=== PATIENT | female | born 1955 | race Caucasian/White ===

== ENCOUNTER 2020-10-14 12:32 | Outpatient (REF) | payer MEDICARE, OTHER, SELFPAY ==
[2020-10-14 21:15] LABS: ALT 31 U/L (14-59); AST 21 U/L (15-37); Albumin 4.2 g/dL (3.4-5.0); Alkaline Phosphatase 75 U/L (46-116); BUN 13 mg/dL (7-18); Bilirubin, Total 0.7 mg/dL (0.2-1.0); CREATININE 0.77 mg/dL (0.55-1.02); Chloride 101 mmol/L (98-107); Glucose 98 mg/dL (74-106); Potassium 4.2 mmol/L (3.5-5.1); Sodium 136 mmol/L (136-145); Total Protein 7.3 g/dL (6.4-8.2)
[2020-10-14 21:34] LABS: Calculated LDL 82 mg/dL (<100); Cholesterol 157 mg/dL (<200); HDL Cholesterol 52 mg/dL (40-60); Triglyceride 118 mg/dL (<150)
== END 2020-10-14 12:52 ==
LOC: NCHCN 12:32
PROVIDERS: Visit Provider Nurse Practitioner Family
DX: I10 Essential (primary) hypertension (principal); E78.00 Pure hypercholesterolemia, unspecified; Z51.81 Encounter for therapeutic drug level monitoring
CPT/HCPCS: 80053; 80061

== ENCOUNTER 2021-10-23 10:33 | Outpatient (REF) | payer MEDICARE, OTHER, SELFPAY ==
[2021-10-23 15:09] LABS: ALT 37 U/L (14-59); AST 20 U/L (15-37); Albumin 4.1 g/dL (3.4-5.0); Alkaline Phosphatase 98 U/L (46-116); Anion Gap 8.4 mmol/L (3-11); BUN 17 mg/dL (7-18); Bilirubin, Total 0.7 mg/dL (0.2-1.0); CO2 28.6 mmol/L (21.0-32.0); CREATININE 0.7 mg/dL (0.55-1.02); Calcium 9.7 mg/dL (8.5-10.1); Calculated LDL 100 mg/dL (<100); Chloride 99 mmol/L (98-107); Cholesterol 176 mg/dL (<200); Glucose 115 mg/dL (74-106); HDL Cholesterol 58 mg/dL (40-60); Potassium 3.9 mmol/L (3.5-5.1); Sodium 136 mmol/L (136-145); TSH 1.02 uIU/mL (0.36-3.74); Total Protein 7.4 g/dL (6.4-8.2); Triglyceride 92 mg/dL (<150)
[2021-10-24 01:06] LABS: Vitamin D 25 Total 51.7 ng/mL (30-100)
== END 2021-10-23 10:34 | disposition home or self-care (01) ==
LOC: NCHCN 10:33
PROVIDERS: Visit Provider Nurse Practitioner Family
DX: I10 Essential (primary) hypertension (principal); E78.00 Pure hypercholesterolemia, unspecified; E03.1 Congenital hypothyroidism without goiter; R53.83 Other fatigue
CPT/HCPCS: 80053; 80061; 82306; 84443

== ENCOUNTER 2021-11-13 00:31 | Outpatient (CLI) | payer MEDICARE, OTHER, SELFPAY ==
--- NOTE | 2021-11-13 13:33 | DI.MAMMO_ITS ---
Exam(s) MAMMO SCREENING EXAM: MAMMO SCREENING CLINICAL HISTORY: SCREENING FOR BREAST CANCER Z12.31. TECHNIQUE: Bilateral full field digital CC and MLO mammographic images were obtained with 3D tomosyn thesis and utilizing computer aided detection (CAD). COMPARISON: Prior outside mammograms dating back to 2009, the most recent being November 2019. FINDINGS: There has been no significant change in the appearance and distribution of the fibroglandular tissue. There are no new spiculated masses nor malignant appearing microcalcification groups. Benign microcalcifications in the left breast as well as a benign macro calcification in the posterio r aspect of the right breast are unchanged. There is no significant architectural distortion nor skin thickening-retraction. IMPRESSION: No radiographic evidence of malignancy. BI-RADS Category 1 - Negative Breast Density - Category B - Scattered areas of fibroglandular density Breast density Category C or D implies that the patient has dense breast tissue. Dense breast tissue can make it harder to find cancer on a mammogram. Dense breast tissue is also associated with an incr eased risk of breast cancer. This information about the result of the mammogram report was provided to the patient to raise their awareness. Use this report when you speak with the patient about their risks for breast cancer, which includes their family history. At that time, you may recommend additional screening tests (Ultrasoun d or MRI) as these tests may add significant information. A negative radiographic report should not delay biopsy if a dominant or clinically suspicious mass is present. Up to ten percent of cancers are not identified on mammography. A negative report may reinforce clinical impression. Adenosis and dense breasts may obscure an underlying neoplasm. False positive reports average 6 to 10%. Patient will receive a letter notifying them of these results.
== END 2021-11-13 00:51 ==
PROVIDERS: Visit Provider Nurse Practitioner Family
DX: Z12.31 Encounter for screening mammogram for malignant neoplasm of breast (principal)
CPT/HCPCS: 77063; 77067

== ENCOUNTER 2022-11-02 11:36 | Outpatient (REF) | payer MEDICARE, OTHER, SELFPAY ==
[2022-11-02 16:33] LABS: ALT 36 U/L (14-59); AST 22 U/L (15-37); Albumin 4.1 g/dL (3.4-5.0); Alkaline Phosphatase 108 U/L (46-116); Anion Gap 6.7 mmol/L (3-11); BUN 13 mg/dL (7-18); Bilirubin, Total 0.6 mg/dL (0.2-1.0); CO2 30.3 mmol/L (21.0-32.0); CREATININE 0.7 mg/dL (0.55-1.02); Calcium 9.7 mg/dL (8.5-10.1); Chloride 100 mmol/L (98-107); Estimated GFR 93.56 (mL/min/1.73m2); Glucose 107 mg/dL (74-106); Potassium 4.5 mmol/L (3.5-5.1); Sodium 137 mmol/L (136-145); TSH 1.38 uIU/mL (0.36-3.74); Total Protein 7.4 g/dL (6.4-8.2)
== END 2022-11-02 11:37 | disposition home or self-care (01) ==
LOC: NCHCN 11:36
PROVIDERS: PCP Nurse Practitioner Family; Visit Provider Nurse Practitioner Family
DX: E03.1 Congenital hypothyroidism without goiter (principal); Z51.81 Encounter for therapeutic drug level monitoring
CPT/HCPCS: 80053; 84443

== ENCOUNTER 2022-11-21 15:43 | Outpatient (REF) | payer MEDICARE, OTHER, SELFPAY | END 2022-11-21 15:44 | disposition home or self-care (01) | LOC: NCHCN 15:43 | PROVIDERS: PCP Nurse Practitioner Family; Visit Provider Nurse Practitioner Family | DX: R39.89 Other symptoms and signs involving the genitourinary system (principal) | CPT/HCPCS: 87077; 87086; 87186 ==

== ENCOUNTER 2022-12-21 00:13 | Outpatient (CLI) | payer MEDICARE, OTHER, SELFPAY ==
--- NOTE | 2022-12-21 | DI.DEXA_ITS ---
Exam(s) XR DEXA BONE DENSITY W/WO OSIRIS EXAM: XR DEXA BONE DENSITY W/WO OSIRIS CLINICAL HISTORY: PREVENTIVE HEALTH CARE,Z00.00,SCREENING FOR OSTEOPOROSIS IN POSTMENOPAUSAL TECHNIQUE: COMPARISON: No exams were available for comparison FINDINGS: Lateral Spine Image: Unremarkable. No compression deformities identified. Left hip: Total T-Score: -0.8 Total Z-Score: 0.6 T- and Z-scores: Within normal limits. Lumbar Spine: Total T-Score: 1.9 Total Z-Score: 3.9 T- and Z-scores: Within normal limits. IMPRESSION: No evidence of osteoporosis.
== END 2022-12-21 00:33 ==
LOC: DI 00:14
PROVIDERS: PCP Nurse Practitioner Family; Visit Provider Nurse Practitioner Family
DX: Z13.820 Encounter for screening for osteoporosis (principal); Z78.0 Asymptomatic menopausal state
CPT/HCPCS: 77080

== ENCOUNTER 2023-06-10 11:16 | Outpatient (REF) | payer MEDICARE, OTHER, SELFPAY ==
[2023-06-10 17:22] LABS: Vitamin B12 316 pg/mL (193-986)
== END 2023-06-10 11:17 | disposition home or self-care (01) ==
LOC: NCHCN 11:16
PROVIDERS: PCP Nurse Practitioner Family; Visit Provider Nurse Practitioner Family
DX: M79.673 Pain in unspecified foot (principal)
CPT/HCPCS: 82607; 83735

== ENCOUNTER → 2023-07-11 08:45 | Outpatient (BNVA) | payer MEDICARE, OTHER, SELFPAY | PROVIDERS: PCP Nurse Practitioner Family; Referring Provider Nurse Practitioner Family; Visit Provider Physical Therapy Assistant | DX: Z12.11 Encounter for screening for malignant neoplasm of colon (principal); Z86.010 Personal history of colon polyps ==

== ENCOUNTER 2023-07-30 12:49 | Outpatient (REF) | payer MEDICARE, OTHER, SELFPAY ==
[2023-07-30 17:16] LABS: Anion Gap 5.2 mmol/L (3-11); BUN 15 mg/dL (7-18); CO2 31.8 mmol/L (21.0-32.0); CREATININE 0.8 mg/dL (0.55-1.02); Calcium 9.7 mg/dL (8.5-10.1); Chloride 90 mmol/L (98-107); Estimated GFR 79.71 (mL/min/1.73m2); Glucose 118 mg/dL (74-106); Potassium 3.8 mmol/L (3.5-5.1); Sodium 127 mmol/L (136-145)
== END 2023-07-30 12:50 | disposition home or self-care (01) ==
LOC: NCHCN 12:49
PROVIDERS: PCP Nurse Practitioner Family; Visit Provider Nurse Practitioner Family
DX: I10 Essential (primary) hypertension (principal); R20.2 Paresthesia of skin
CPT/HCPCS: 80048

== ENCOUNTER 2023-07-31 10:25 | Day surgery (SDC) | payer MEDICARE, OTHER, SELFPAY ==
--- NOTE | 2023-07-31 06:28 | W.ANESPRE ---
General Info Date of Service Date Performed: 07/31/23 Height: 5 ft 2 in Weight: 68.039 kg Body Mass Index (BMI): 27.4 Surgical Procedure: Operation Date: 07/31/23 12:20 Proposed Procedure Side Surgeon p Saul Fernandez MD Meds Allergies and Home Medications Allergies Allergy/AdvReac Type Severity Reaction Status Date / Time penicillin V Allergy Severe Verified 07/31/23 10:58 Home Medication Medication Instructions Recorded aspirin 81 mg tablet,delayed 81 mg PO DAILY 12/24/22 release (Adult Aspirin Regimen) atorvastatin 10 mg tablet 10 mg PO QHS 12/24/22 coenzyme Q10 10 mg capsule (Co 10 mg PO DAILY 12/24/22 Q-10) escitalopram oxalate 5 mg tablet 5 mg PO DAILY 12/24/22 fexofenadine 180 mg tablet 180 mg PO DAILY PRN 12/24/22 (Brina Allergy) levothyroxine 100 mcg capsule 100 mcg PO DAILY 12/24/22 losartan 100 mg tablet 100 mg PO DAILY 12/24/22 bisacodyl 5 mg tablet,delayed 5 mg PO ONCE colonscopy bowel prep 07/11/23 release (Dulcolax (bisacodyl)) #4 tabs fluticasone propionate 50 1 spray intranasal DAILY PRN 07/11/23 mcg/actuation nasal spray,suspension (Allergy Relief (fluticasone)) polyethylene glycol 3350 17 238 g PO ONCE colonoscopy prep 07/11/23 gram/dose oral powder #238 grams chlorthalidone 25 mg tablet 25 mg PO DAILY 07/30/23 Current Visit Medications: Current Medications Generic Name Dose Route Start Last Admin Trade Name Chrisq PRN Reason Stop Dose Admin Ringer's Solution 1,000 mls @ 80 mls/hr 07/31/23 06:00 IV 08/29/23 23:59 INFUSION TAIWO IV Miscellaneous Supplies 1 each 07/31/23 06:00 Iv Access IV 08/29/23 23:59 DIRECTED TAIWO Sodium Chloride 0 ml 07/31/23 06:00 Normal Saline Flush 10 Ml Syr IV 08/29/23 23:59 PRN PRN Sodium Chloride 0 ml 07/31/23 06:00 Normal Saline 10 Ml Vial IJ 08/29/23 23:59 DIRECTED PRN Sterile Water 0 ml 07/31/23 06:00 Water,Injection,Sterile 10 Ml Vial IJ 08/29/23 23:59 DIRECTED PRN PFSH Active Problems Active Problems: Problem Status Onset Code Tubulovillous adenoma of colon D12.6 GERD (gastroesophageal reflux disease) K21.9 Pure hypercholesterolemia E78.00 Essential hypertension I10 Abnormal glucose R73.09 Diverticulosis of both small and large intestine without perforation or abscess without bleeding K57.50 Depression F32.A PVD (peripheral vascular disease) I73.9 Carotid artery stenosis I65.29 Cardiomegaly I51.7 Rosacea L71.9 Raynaud's phenomenon I73.00 Hypothyroid E03.9 Screening for colon cancer Z12.11 Medical History Medical History Cervical disc displacement Family history of alcoholism Shingles Spinal stenosis in cervical region Surgical History Surgical History H/O shoulder surgery H/O: hysterectomy History of colon resection 2011 History of incisional hernia repair Tobacco Smoking/Tobacco Use Status: Former Tobacco Use Alcohol Alcohol Intake: current Alcohol intake frequency: 0-2 drinks per day Alcohol type: beer Substance Use Substance use: Never Substance use type: does not use Vital Signs and Lab Results Vital Signs Most Recent Vital Signs in EMR: Temp Pulse Resp BP Pulse Ox 36.5 C 73 17 139/47 L 100 07/31/23 10:47 07/31/23 10:47 07/31/23 10:47 07/31/23 10:47 07/31/23 10:47 Lab Results Blood Type / Crossmatch: No Data to Display Complete Blood Count: No Data to Display Complete Metabolic Panel: Sodium 127 mmol/L (136-145) L 07/30/23 07:40 Potassium 3.8 mmol/L (3.5-5.1) 07/30/23 07:40 Chloride 90 mmol/L (98-107) L 07/30/23 07:40 Carbon Dioxide 31.8 mmol/L (21.0-32.0) 07/30/23 07:40 BUN 15 mg/dL (7-18) 07/30/23 07:40 Creatinine 0.8 mg/dL (0.55-1.02) 07/30/23 07:40 Est GFR (CKD-EPI 2020) 79.71 (mL/min/1.73m2) 07/30/23 07:40 Calcium 9.7 mg/dL (8.5-10.1) 07/30/23 07:40 Glucose 118 mg/dL (74-106) H 07/30/23 07:40 Liver Function Panel: No Data to Display Coagulation Panel: No Data to Display Cardiac Panel: No Data to Display Arterial Blood Gas: No Data to Display Venous Blood Gas: No Data to Display Pancreas Panel: No Data to Display Thyroid Panel: No Data to Display Infectious Disease: No Data to Display Blood Cultures: No Data to Display Toxicology Panel: No Data to Display Anesthesia Assessment and Plan Anesthesia History Personal History: No History of Anesthesia Complications Family History: No Family History of Anesthesia Complications Exercise Tolerance Exercise Tolerance: Metabolic Equivalents>4 Cardiac & Pulmonary Exam Cardiac Exam: Normal S1/S2 Heart Sounds Pulmonary Exam: Clear Bilateral Breath Sounds Implantable Cardiac Device Does patient have a Pacemaker or an ICD?: No Airway Exam Known Difficult Airway: No Mallampati Class: 3 Mouth Opening: Normal (> 3cm) Thyromental Distance: Greater than 3 cm Neck Range of Motion: Full ROM Neck Circumference: Normal Teeth Condition: Normal Dentition ASA Classification ASA Score: ASA 2 Emergency Case?: No NPO Status NPO Status: NPO Clears >2 hours, Solids >8 hours Anesthesia Plan Resuscitation Status: Full Code Anesthesia Technique: General Anesthesia Airway Planned: Natural Airway Monitors Used: Standard Monitors Preoperative Comments:: 67 yo female for colo. Sig PMHx: HTN, cardiomegaly (unsure), PVD/carotid stenosis (denies, tested in [place]), hypothyroid. cervical stenosis. former smoker, occ EtOH.
[2023-07-31 10:47] VITALS: BP 139/47; PULSE 73; RESP 17; TEMP 36.5; O2SAT 100
[2023-07-31 11:08] VITALS: BMI 27.4
[2023-07-31] MEDS: Lactated Ringers 1,000 ML 80 ML IV (11:09)
--- NOTE | 2023-07-31 11:46 | COLE_ITS ---
Date of service: 07/31/23 Time of Service: 11:46 Colonoscopy Report Procedure Description: Procedures performed: 1. Colonoscopy Preoperative diagnosis: Surveillance colonoscopy Postoperative diagnosis: Normal Colon, grade 1 internal hemorrhoids. Surgeon: Pro Fernandez Anesthesia: Mitul Indication for procedure: 67-year-old thrombosed removed, prior colonoscopy had a sessile serrated polyp, she has no personal history or family history of colorectal cancer. History of sigmoid colectomy for diverticular disease. Findings: Normal terminal ileum.? Scattered diverticuli are present in the descending colon all the way to the proximal rectum. No new polyps. Grade 1 i nternal hemorrhoids noted. Surveillance/follow-up recommendations: Current guidelines recommend 5-10 years as a surveillance interval for single, small sessile serrated adenoma history. Complications: None Blood loss: Minimal Prep: Excellent Specimens:? None Procedure in detail: Written consent was obtained from the patient who was in agreement with the risks, benefits and indications of the procedure.? We went to the endoscopy suite and laid the patient in left lateral decubitus position.? Anesthesia was administered which was tolerated well.? A timeout was performed and when we are all in agreement we began the procedure. Digital rectal exam and visual examination was performed and within normal limits.? A well?lubricated colonoscope was advanced without difficulty all the way to the cecum identified by the ileocecal valve, and triangular folds and appendiceal orifice.? Terminal ileum was normal.? It was then slowly withdrawn.?? Retroflexion was performed in the rectum.? The f indings/interventions are noted above. The scope was then removed and the patient tolerated the procedure well and was then taken back to the PACU in hemodynamically stable condition.
[2023-07-31 12:06] VITALS: BP 104/67; PULSE 60; RESP 18; TEMP 36.3; O2SAT 98
--- NOTE | 2023-07-31 12:15 | W.ANESPOSTOP ---
Postoperative Evaluation Date, Time and Location Date Performed: 07/31/23 Time Performed: 12:15 Patient Location: Day Surgery Unit Vital Signs Most Recent Imported Vital Signs: Most Recent Vital Signs Temp Pulse Resp BP Pulse Ox 36.3 C L 60 18 104/67 98 07/31/23 12:06 07/31/23 12:06 07/31/23 12:07/31/23 12:07/31/23 12:06 Pain Score Most Recent Pain Score: Most Recent Pain Score Pain Level 0 07/31/23 10:47 Assessment Mental Status: Awake (Alert & Oriented to Patient Baseline) Airway and Respiratory Function: Patent airway with normal (patient baseline) respiratory exam Cardiovascular Function: Hemodynamically Stable Hydration Status: Adequately Hydrated Nausea & Vomiting: No Nausea or Vomiting Pain: Pt. Denies Any Pain Peripheral Nerve Block: Patient did not receive a nerve block
--- NOTE | 2023-07-31 12:32 | W.PM.DSUDISC ---
Date of service: 07/31/23 Time of Service: 12:32 Discharge Plan Disposition Patient Disposition: Home Condition: Good Discharge Details Attending Provider: Maury Fernandez Primary Care Provider: Dayanna Michaels Home Meds and New Rx's Prescriptions: No Action polyethylene glycol 3350 17 gram/dose powder 238 g PO ONCE Qty: 238 0RF Rx Instructions: take per colonoscopy instructions bisacodyl [Dulcolax (bisacodyl)] 5 mg tablet,delayed release (DR/EC) 5 mg PO ONCE Qty: 4 0RF Rx Instructions: take per colonoscopy instructions escitalopram oxalate 5 mg tablet 5 mg PO DAILY levothyroxine 100 mcg capsule 100 mcg PO DAILY atorvastatin 10 mg tablet 10 mg PO QHS losartan 100 mg tablet 100 mg PO DAILY fexofenadine [Brina Allergy] 180 mg tablet 180 mg PO DAILY PRN coenzyme Q10 [Co Q-10] 10 mg capsule 10 mg PO DAILY aspirin [Adult Aspirin Regimen] 81 mg tablet,delayed release (DR/EC) 81 mg PO DAILY fluticasone propionate [Allergy Relief (fluticasone)] 50 mcg/actuation spray,suspension 1 spray intranasal DAILY PRN Rx Instructions: administer into each nostril chlorthalidone 25 mg tablet 25 mg PO DAILY Discharge Instructions Stand Alone Forms: Anesthesia Discharge Inst., [facility] ([facility]), Colonoscopy Post Instructions Activity:: Activity as Tolerated Diet:: Normal Diet DS: Diagnosis Discharge Diagnosis (1) Screening for colon cancer: Status: Acute Asessment and Plan: No new Polyps were found. Repeat colonoscopy is recommended in 5 to 10 years. There remains some diverticular disease in your colon. This is very common and is usually not have symptoms there is nothing that needs to be done about it.
[2023-07-31 12:35] VITALS: BP 127/74; PULSE 62; RESP 18; TEMP 36.6; O2SAT 99
== END 2023-07-31 12:49 | disposition home or self-care (01) ==
PROVIDERS: PCP Nurse Practitioner Family; Visit Provider Student in an Organized Health Care Education/Training Program
PROC: 0DJD8ZZ Inspection of Lower Intestinal Tract, Via Natural or Artificial Opening Endoscopic (ICD-10-PCS; CPT 45378; principal; 2023-07-31 12:15)
DX: Z12.11 Encounter for screening for malignant neoplasm of colon (principal); K64.0 First degree hemorrhoids; Z86.010 Personal history of colon polyps; Z90.49 Acquired absence of other specified parts of digestive tract; Z98.0 Intestinal bypass and anastomosis status
CPT/HCPCS: G0105; J2001

== ENCOUNTER 2023-08-19 12:31 | Outpatient (REF) | payer MEDICARE, OTHER, SELFPAY ==
[2023-08-19 17:42] LABS: BUN 14 mg/dL (7-18); CREATININE 0.7 mg/dL (0.55-1.02); Chloride 98 mmol/L (98-107); Estimated GFR 93.56 (mL/min/1.73m2); Glucose 104 mg/dL (74-106); Potassium 4.3 mmol/L (3.5-5.1); Sodium 133 mmol/L (136-145)
== END 2023-08-19 12:32 | disposition home or self-care (01) ==
LOC: NCHCN 12:31
PROVIDERS: PCP Nurse Practitioner Family; Visit Provider Nurse Practitioner Family
DX: M77.41 Metatarsalgia, right foot (principal); I10 Essential (primary) hypertension; M77.42 Metatarsalgia, left foot
CPT/HCPCS: 80048

== ENCOUNTER → 2023-10-01 00:08 | Outpatient (CLI) | payer MEDICARE, OTHER, SELFPAY ==
--- NOTE | 2023-10-01 | DI.MAMMO_ITS ---
Exam(s) MAMMO SCREENING EXAM: MAMMO SCREENING CLINICAL HISTORY: SCREENING, Z12.31. TECHNIQUE: Bilateral full field digital CC and MLO mammographic images were obtained with 3D tomosyn thesis and utilizing computer aided detection (CAD). COMPARISON: Prior mammograms were reviewed. FINDINGS: There has been no significant change in the appearance and distribution of the fibroglandular tissue. There are no new spiculated masses nor malignant appearing microcalcification groups. There is no significant architectural distortion nor skin thickening-retraction. IMPRESSION: No radiographic evidence of malignancy. BI-RADS Category 1 - Negative Breast Density - Category B - Scattered areas of fibroglandular density Breast density Category C or D implies that the patient has dense breast tissue. Dense breast tissue can make it harder to find cancer on a mammogram. Dense breast tissue is also associated with an incr eased risk of breast cancer. This information about the result of the mammogram report was provided to the patient to raise their awareness. Use this report when you speak with the patient about their risks for breast cancer, which includes their family history. At that time, you may recommend additional screening tests (Ultrasoun d or MRI) as these tests may add significant information. A negative radiographic report should not delay biopsy if a dominant or clinically suspicious mass is present. Up to ten percent of cancers are not identified on mammography. A negative report may reinforce clinical impression. Adenosis and dense breasts may obscure an underlying neoplasm. False positive reports average 6 to 10%. Patient will receive a letter notifying them of these results.
== END ==
PROVIDERS: PCP Nurse Practitioner Family; Visit Provider Nurse Practitioner Family
DX: Z12.31 Encounter for screening mammogram for malignant neoplasm of breast (principal); R92.323 Mammographic fibroglandular density, bilateral breasts
CPT/HCPCS: 77063; 77067

== ENCOUNTER 2023-11-11 19:22 | Outpatient (REF) | payer MEDICARE, OTHER, SELFPAY ==
[2023-11-11 16:35] LABS: Hemoglobin A1C 5.6 % (<5.7)
[2023-11-11 16:54] LABS: ALT 31 U/L (14-59); AST 21 U/L (15-37); Albumin 3.9 g/dL (3.4-5.0); Alkaline Phosphatase 99 U/L (46-116); Anion Gap 9.1 mmol/L (3-11); BUN 13 mg/dL (7-18); Bilirubin, Total 0.6 mg/dL (0.2-1.0); CO2 25.9 mmol/L (21.0-32.0); CREATININE 0.8 mg/dL (0.55-1.02); Calcium 9.5 mg/dL (8.5-10.1); Calculated LDL 93 mg/dL (<100); Chloride 102 mmol/L (98-107); Cholesterol 167 mg/dL (<200); Estimated GFR 79.22 (mL/min/1.73m2); Glucose 115 mg/dL (74-106); HDL Cholesterol 61 mg/dL (40-60); Potassium 4.2 mmol/L (3.5-5.1); Sodium 137 mmol/L (136-145); TSH 1.27 uIU/mL (0.36-3.74); Total Protein 7.3 g/dL (6.4-8.2); Triglyceride 68 mg/dL (<150)
== END 2023-11-11 19:23 | disposition home or self-care (01) ==
LOC: NCHCN 19:22
PROVIDERS: PCP Nurse Practitioner Family; Visit Provider Nurse Practitioner Family
DX: E78.5 Hyperlipidemia, unspecified (principal); Z00.00 Encounter for general adult medical examination without abnormal findings; E03.9 Hypothyroidism, unspecified
CPT/HCPCS: 80053; 80061; 83036; 84443

== ENCOUNTER → 2023-11-22 09:52 | Outpatient (CLI) | payer MEDICARE, OTHER, SELFPAY ==
--- NOTE | 2023-11-22 10:40 | DI.US_ITS ---
APPROVED REPORT EXAM: Comprehensive 2D, Doppler, and color-flow Echocardiogram Patient Location: Out-Patient [place] Diver: Betito Neri RDCS (AE) Indications: murmur Other Information Study Quality: Good Conclusion 1. Moderately dilated left atrium, other chambers normal. 2. Normal LV systolic function,EF 65-70%.No wall motion abnormality. Grade 1 diastolic dysfunction 3. Anatomically normal valves. Mild to moderate MR,mild AI,mild TR. 4. No pericardial effusion. Wall motion Left Ventricle The left ventricle is normal size. The left ventricular systolic function is normal. The left ventric ular ejection fraction is within the normal range. There is normal left ventricular wall thickness. T here is normal LV segmental wall motion. There is no ventricular septal defect visualized. LVEF is 65 %. Right Ventricle The right ventricle is normal size. The right ventricular systolic function is normal. The RVSP is 31 .8 mmHg. Atria The left atrium size is normal. The left atrium is moderately dilated. The right atrium size is keely l. The interatrial septum is intact with no evidence for an atrial septal defect. Aortic Valve The Aortic valve is sclerotic. Aortic valve is trileaflet. No hemodynamically significant valvular ao rtic stenosis. There is mild aortic regurgitation. Mitral Valve Mild mitral annular calcification. No evidence of mitral valve stenosis. Mild to moderate mitral regu rgitation. Tricuspid Valve The tricuspid valve is normal in structure. There is no tricuspid valve stenosis. There is trace to mild tricuspid regurgitation. There is no pulmonary hypertension. Pulmonic Valve The pulmonary valve is normal in structure. There is no pulmonic valvular stenosis. Trivial pulmonic regurgitation. Great Vessels The aortic root is normal in size. The ascending aorta is normal in size. Aortic arch is not well vis ualized. IVC is normal in size and collapses >50% with inspiration. Pericardium There is no pericardial effusion. 2D Dimensions IVSD d PLAX 0.92 cm F: 0.6-1.0 Ao Root d 2.76 cm F: 2.7 - 3.3 LVPW d PLAX 0.92 cm F: 0.6 - 1.0 Ao Asc Diam d 2.85 cm F: 2.3 - 3.1 LVID d PLAX 4.22 cm F: 3.8 - 5.2 LVDs 2.81 cm F: 2.2 - 3.5 LV EF Teichholz 62.5 % FS 33.41 % LV EDV (Teich) 79.3 mL LV ESV (Teich) 29.7 mL Stroke Vol Index (Teich) 29.67 M-Mode TAPSE 2.56 cm (M/F) >1.7 Auto EF LV EDV A4C 74.7 mL LV EDV A2C 80.1 mL LV EDV BP 77.4 mL LV ESV A4C 25.4 mL LV ESV A2C 28.1 mL LV ESV BP 25.8 mL LVEF(%) A4C 65.9 % LVEF(%) A2C 64.9 % LVEF(%) BP 66.7 % LV SV A4C 49.3 ml LV SV A2C 52.0 ml LV SV BP 51.6 ml LV CO A4C 3.4 L/min LV CO A2C 3.4 L/min LV CO BP 3.4 L/min HR A4C 69.77 BPM HR A2C 66.06 BPM LV EDV Index (BP) LA Volume LA Length A4C 4.4 cm LA Length A2C 4.7 cm LA Area A4C s 11.26 cm2 LA Area A2C s 16.00 cm2 LA Vol A4C A-L 24.29 mL LA Vol A2C A-L 45.86 mL LA Vol Biplane A-L 34.5 mL LA Vol/BSA A4C A-L LA Vol/BSA A2C A-L LA Vol/BSA BP A-L 20.7 mL/m2 LA Vol A4C MOD 22.4 mL LA Vol A2C MOD 42.4 mL LA Vol BP MOD 31.8 mL RA Volume RA Area A4C 5.3 cm2 RA ESV A4C (A-L) 6.2mL RA Vol/BSA A4C A-L RA Length A4C 3.8 cm RA ESV A4C (MOD) 6.2mL LV Diastology MV E' medial 0.075 (>0.07 m/s) MV E Vmax 0.93 (0.4-1.3 m/s) MV E/E' MED 12.47 (<14) MV A Vmax 1.10 (0.4-1.3 m/s) MV E' lateral 0.060 (>0.1 m/s) E/A Ratio 0.8 MV E/E' LAT 15.63 (<14) MV E' Average 0.067 m/s MV E/E'(average) 13.87 Aortic Valve AoV Vmax 2.01 m/s LVOT Vmax 1.49 m/s AoV Peak Grad 35.4 mmHg LVOT Peak Grad 8.9 mmHg AoV Area (Vmax) 2.00 cm2 LVOT VTI 0.393 m AoV VTI 0.491 m LVOT Mean Grad 5.4 mmHg AoV Mean Miguel. 1.43 m/s LVOT SV 105.75 mL AoV Mean Grad 9.3 mmHg LVOT Diam s 1.85 cm AoV Area (VTI) 2.15 cm2 AV Regurg Peak Gr. 53.45 mmHg Velocity Ratio 0.74 AR Decel [place] 3.0m/sec2 AR DT 1205 msec AR PHT 349 msec AR Vmax 3.66 m/s Mitral Valve MV DT 250 (160-240 msec) MV Vmax TIPS 1.38 m/s MV Mean Grad 3.7 (<2mmHg) MV VTI 0.515 m Pulmonary Valve PV Vmax 1.37 (0.5-1.5 m/s) RVOT Vmax 0.78 m/s PV Peak Grad 7.5 mmHg RVOT Peak Gr. 2.4 mmHg PV Mean Miguel 0.86 m/s RVOT VTI 0.179 m PV Mean Grad 3.6 mmHg RVOT Mean Gr. 1.4 mmHg Tricuspid Valve RA Pressure 3.00 mmHg TR Vmax 2.68 m/s TR Peak Grad 28.8 mmHg RVSP (TR) 31.8 mmHg
== END ==
PROVIDERS: PCP Nurse Practitioner Family; Visit Provider Nurse Practitioner Family
DX: R01.1 Cardiac murmur, unspecified (principal)
CPT/HCPCS: 93306

== ENCOUNTER 2023-12-12 09:22 | Outpatient (REF) | payer MEDICARE, SELFPAY ==
[2023-12-12 15:21] LABS: Abs Immature Grans 0.02 10^3/uL (0.0-0.06); Absolute Basophil Count 0.08 10^3/uL (0.0-0.2); Absolute Eosinophil Count 0.35 10^3/uL (0.0-0.7); Absolute Lymphocyte Count 1.92 10^3/uL (1.2-3.4); Absolute Monocyte Count 0.73 10^3/uL (0.1-0.8); Basophils % 1.2; Eosinophils % 5.2; HCT 38.4 % (36.0-46.0); HGB 12.7 g/dL (11.2-15.7); Immature Grans % 0.3; Lymphocytes % 28.7; MCH 31.1 pg (27.0-33.0); MCHC 33.1 % (32.0-36.0); MCV 94 fL (80-95); MPV 11.1 fL (8.0-11.0); Monocytes % 10.9; Neutrophils % 53.7; Platelet Count 300 10^3/uL (130-400); RBC 4.09 10^6/uL (3.93-5.22); RDW 12.3 % (11.7-14.6); RDW-SD 42.5 fL
[2023-12-12 15:34] LABS: Anion Gap 9.5 mmol/L (3-11); BUN 19 mg/dL (7-18); CO2 27.5 mmol/L (21.0-32.0); CREATININE 0.9 mg/dL (0.55-1.02); Calcium 9.9 mg/dL (8.5-10.1); Chloride 100 mmol/L (98-107); Estimated GFR 68.77 (mL/min/1.73m2); Glucose 121 mg/dL (74-106); Magnesium 2.2 mg/dL (1.8-2.4); Potassium 4.2 mmol/L (3.5-5.1); Sodium 137 mmol/L (136-145); Uric Acid 4.8 mg/dL (2.6-6.0)
== END 2023-12-12 09:23 | disposition home or self-care (01) ==
LOC: NCHCN 09:22
PROVIDERS: PCP Nurse Practitioner Family; Visit Provider Nurse Practitioner Family
DX: I73.00 Raynaud's syndrome without gangrene (principal); R79.89 Other specified abnormal findings of blood chemistry
CPT/HCPCS: 80048; 83735; 84550; 85025

== ENCOUNTER 2024-10-15 10:55 | Outpatient (REF) | payer MEDICARE, SELFPAY ==
[2024-10-15 16:45] LABS: Hemoglobin A1C 5.8 % (<5.7)
[2024-10-15 16:55] LABS: Anion Gap 7.4 mmol/L (3-11); BUN 11 mg/dL (7-18); CO2 26.6 mmol/L (21.0-32.0); CREATININE 0.8 mg/dL (0.55-1.02); Calcium 9.3 mg/dL (8.5-10.1); Chloride 101 mmol/L (98-107); Estimated GFR 79.22 (mL/min/1.73m2); FREE T4 1.24 ng/dL (0.76-1.46); Glucose 136 mg/dL (74-106); Potassium 4.1 mmol/L (3.5-5.1); Sodium 135 mmol/L (136-145); TSH 2.11 uIU/mL (0.36-3.74)
== END 2024-10-15 10:56 | disposition home or self-care (01) ==
LOC: NCHCN 10:55
PROVIDERS: PCP Nurse Practitioner Family; Visit Provider Nurse Practitioner Family
DX: I10 Essential (primary) hypertension (principal)
CPT/HCPCS: 80048; 83036; 84439; 84443

== ENCOUNTER → 2024-10-28 13:08 | Outpatient (BNVA) | payer MEDICARE, SELFPAY | PROVIDERS: PCP Nurse Practitioner Family; Referring Provider Nurse Practitioner Family; Visit Provider Student in an Organized Health Care Education/Training Program | DX: R13.10 Dysphagia, unspecified (principal) | CPT/HCPCS: 99214 ==

== ENCOUNTER 2024-11-27 06:09 | Day surgery (SDC) | payer MEDICARE, SELFPAY ==
--- NOTE | 2024-11-26 08:46 | W.PM.DSUDISC ---
Date of service: 11/27/24 Discharge Plan Disposition Patient Disposition: Home Condition: Good Discharge Details Reason For Visit: EGD Attending Provider: Stephon Keen Primary Care Provider: Dayanna Michaels Home Meds and New Rx's Prescriptions: Continued escitalopram oxalate 5 mg tablet 5 mg PO DAILY levothyroxine 100 mcg capsule 100 mcg PO DAILY atorvastatin 10 mg tablet 10 mg PO QHS losartan 100 mg tablet 100 mg PO DAILY fexofenadine [Brina Allergy] 180 mg tablet 180 mg PO DAILY PRN coenzyme Q10 [Co Q-10] 10 mg capsule 10 mg PO DAILY aspirin [Adult Aspirin Regimen] 81 mg tablet,delayed release (DR/EC) 81 mg PO DAILY fluticasone propionate [Allergy Relief (fluticasone)] 50 mcg/actuation spray,suspension 1 spray intranasal DAILY PRN Rx Instructions: administer into each nostril furosemide 20 mg tablet 20 mg PO QAM omeprazole 20 mg capsule,delayed release(DR/EC) 40 mg PO DAILY PRN Discharge Instructions Instructions: Pureed Diet Additional Instructions: Lilly is very nice meeting you in person today, and I hope you feel great after the EGD. You do have a narrowing of your lower esophagus right above the area where it connects down onto your stomach. Number of different things can cause this, but based on the shape, and the texture of the tissue, I suspect this is an Schatzki's ring, or esophageal ring. These are most often associated with longstanding gastroesophageal reflux disease, but other disorders such as eosinophilic esophagitis can also cause them. Based on the appearance, I do not suspect that this is a cancer, but to be safe, I did do some biopsies of the area. As I mentioned before hand, I also did a small stretching, or dilation of the area in order to improve it. When we started, it was less than 10 mm in size, and I did stretch this up to about 12 mm today. Put this in perspective, and normal esophagus is probably around 20 mm. Assuming you feel okay after this, and once I have the results of the biopsies, most likely will plan for repeat procedure, typically around 3 to 4 weeks from now for another dilation, at that time, I would anticipate trying to get you up to about 18 mm. But will take 1 step at a time to make sure everything goes safely. The biopsies that I did today will take about a week or so to get back, and once I have that information I will be in touch. I will also let the office know to help you plan a repeat endoscopy around 3 to 4 weeks from now. In the meantime, I would like you to continue with your omeprazole at the higher dose. I would also encourage you to be careful with your diet, making sure that food is well chewed, and easy to swallow. You may get some good suggestions from the Internet if you look up a dysphagia diet. My other recommendation for patients is to focus on things that you would typically consume on a spoon, or chew things with a texture that would be easy to macerate if you had no teeth at all. Well cooked noodles, steamed vegetables, and other things with similar consistency would probably be very easy to swallow. 1. If tolerated, consume a soft, low fiber diet for 1-2 days. 2[address] Do not drive, drink alcohol, operate machinery, make critical decisions, or do activities that require coordination or balance for 24 hours. 3. You may experience a sore throat for 24 to 48 hours. You may use throat lozenges or gargle with warm salt water to relieve the discomfort. 4. Because air was put into your stomach during the procedure, you may experience some belching. 5. Go directly to the emergency room if you notice any of the following: Develop chills (warm to touch), or if you have a thermometer and your temperature is above 101 Difficulty breathing or difficultly swallowing Persistent vomiting Severe abdominal pain, other than gas cramps Severe chest pain Black, tarry stools Any bleeding ? exceeding one tablespoon 6. Call your physician if the site where your intravenous was started becomes red, swollen, painful, and warm to touch. 7. Your physician has reviewed your pre-procedure medications. Please continue to take those medications as previously ordered. You will be given specific information/education regarding any changes to your medications before leaving. Stand Alone Forms: Anesthesia Discharge InstAna Zurita (DSU) Activity:: Activity as Tolerated Diet:: As Tolerated Discharge Orders Discharge Orders: Discharge Order (Routine); Ordered 11/26/24 Ordered By: Stephon Keen DS: Diagnosis Discharge Diagnosis (1) Dysphagia: Status: Acute Asessment and Plan: Follow-up on biopsies and anticipate repeat EGD in 3 to 4 weeks
--- NOTE | 2024-11-26 08:49 | ENDO_ITS ---
Date of service: 11/27/24 Time of Service: 07:57 Endoscopy Report DATE OF PROCEDURE: 11/27/24 PRE-OP DIAGNOSIS: dysphagia POST-OP DIAGNOSIS: other (Schatzki's ring) PROCEDURE: EGD with biopsy and dilation SURGEON: Stephon Keen ANESTHESIA TYPE: General:No Airway ESTIMATED BLOOD LOSS: 10 PATHOLOGY: other (Biopsies of esophageal stricture) COMPLICATIONS: None DISPOSITION: same day INDICATIONS: Lilly is a 69 year old woman who needs an EGD for progressive dysphagia PROCEDURE START TIME: :28 PROCEDURE END TIME: 07:37 FINDINGS: Schatzki's ring approximately 35 cm from the incisors; gastric polyps PROCEDURE DESCRIPTION: After the initiation of anesthesia, and with the assistance of a bite block, I advanced a standard gastroscope through the mouth past the hypopharynx and into the esophagus.? Under the direct vision of the scope, I advanced down the esophagus towards the stomach. The upper, and midesophagus are normal- appearing, or perhaps just slightly dilated. Around 35 cm from the incisors is a almost circumferential narrowing just about 1 cm above the GE junction. This narrowing occurs around 35 cm from the incisors. Clinical features appear consistent with a Schatzki's ring. Narrowband imaging was used to assist with the analysis. There may be just a little bit of Grimm's esophagus down below the GE junction, but this is difficult to see because I am not able to pass the camera beyond the narrowing. I performed some cold forceps biopsies of the narrowing as sales representative graphic art sample for definitive tissue diagnosis. Next, I passed a inflatable balloon dilator across the narrowing. The endoscope was used to guide the guidewire without any difficulty. The balloon was inflated up to 10 mm. The balloon was let down, the balloon was drawn back up into the scope, and another attempt was made to pass the narrowing. At this point, it still would not accommodate the end of the gastroscope. The tissue looked healthy, however, and there did not appear to be any significant trauma from the dilation. Therefore, I advanced the balloon back across this again, and dilated up to 12 mm. Once this was complete, the balloon was let down, brought back up into the scope, and I could easily navigate down into the stomach proper. I performed retroflexion. I saw no evidence of any trauma from the dilation. There are some signs of gastric polyps, which will probably need to be sampled in the future, but at this point, with some mild dilation of the narrowing, I felt the safest thing to do is terminate the procedure, await definitive pathology results. The camera was brought back up to the stricture 1 more time, and it was examined once again. Similar to the first dilation, there was no evidence of any significant trauma to the surrounding tissue. The camera was then brought out along the length of the esophagus, and no other abnormalities were appreciated.
--- NOTE | 2024-11-26 18:04 | W.ANESPRE ---
General Info Date of Service Date Performed: 11/27/24 Height: 5 ft 1 in Weight: 68.152 kg Body Mass Index (BMI): 28.3 Surgical Procedure: Operation Date: 11/27/24 07:35 Proposed Procedure Side Surgeon p Gastroscopy Stephon Keen MD Meds Allergies and Home Medications Allergies Allergy/AdvReac Type Severity Reaction Status Date / Time penicillin V Allergy Severe as child Verified 11/27/24 06:17 Home Medication ?Medication ?Instructions ?Recorded aspirin 81 mg tablet,delayed 81 mg PO DAILY 12/24/22 release (Adult Aspirin Regimen) atorvastatin 10 mg tablet 10 mg PO QHS 12/24/22 coenzyme Q10 10 mg capsule (Co 10 mg PO DAILY 12/24/22 Q-10) escitalopram oxalate 5 mg tablet 5 mg PO DAILY 12/24/22 fexofenadine 180 mg tablet 180 mg PO DAILY PRN 12/24/22 (Brina Allergy) levothyroxine 100 mcg capsule 100 mcg PO DAILY 12/24/22 losartan 100 mg tablet 100 mg PO DAILY 12/24/22 fluticasone propionate 50 1 spray intranasal DAILY PRN 07/11/23 mcg/actuation nasal spray,suspension (Allergy Relief (fluticasone)) furosemide 20 mg tablet 20 mg PO QAM 10/21/24 omeprazole 20 mg capsule,delayed 40 mg PO DAILY PRN 10/21/24 release Current Visit Medications: Current Medications Generic Name Dose Route Start Last Admin Trade Name Freq PRN Reason Stop Dose Admin IV Miscellaneous Supplies 1 each 11/27/24 06:00 Iv Access IV 11/27/24 23:59 DIRECTED TAIWO Sodium Chloride 0 ml 11/27/24 06:00 Normal Saline Flush 10 Ml Syr IV 11/27/24 23:59 PRN PRN Sodium Chloride 0 ml 11/27/24 06:00 Normal Saline 10 Ml Vial IJ 11/27/24 23:59 DIRECTED PRN Sterile Water 0 ml 11/27/24 06:00 Water,Injection,Sterile 10 Ml Vial IJ 11/27/24 23:59 DIRECTED PRN PFSH Active Problems Active Problems: Problem Status Onset Code Dysphagia Acute R13.10 Systolic murmur Acute ~10/2023 R01.1 Disorder of left atrium Acute ~11/2023 I51.9 Right lower quadrant pain Acute R10.31 Tubulovillous adenoma of colon Acute D12.6 GERD (gastroesophageal reflux disease) Chronic K21.9 Pure hypercholesterolemia Acute E78.00 Essential hypertension Acute I10 Abnormal glucose Acute R73.09 Diverticulosis of both small and large intestine without perforation or abscess without bleeding Acute K57.50 Depression Chronic F32.A PVD (peripheral vascular disease) Chronic I73.9 Carotid artery stenosis Acute I65.29 Cardiomegaly Acute I51.7 Rosacea Acute L71.9 Hypothyroid Chronic E03.9 Screening for colon cancer Acute Z12.11 Medical History Medical History Hyperlipidemia Metatarsalgia Raynaud's phenomenon Shingles 2020 Family history of alcoholism Spinal stenosis in cervical region Cervical disc displacement Surgical History Surgical History History of colonoscopy (~07/2023) History of incisional hernia repair History of colon resection 2011 H/O shoulder surgery H/O: hysterectomy Tobacco Smoking/Tobacco Use Status: Former Tobacco Use Alcohol Alcohol Intake: current Alcohol intake frequency: 0-2 drinks per day Alcohol type: beer Substance Use Substance use: Never Substance use type: does not use Vital Signs and Lab Results Vital Signs Most Recent Vital Signs in EMR: Temp Pulse Resp BP Pulse Ox 36.6 C 66 18 128/57 L 95 11/27/24 06:18 11/27/24 06:18 11/27/24 06:18 11/27/24 06:18 11/27/24 06:18 Lab Results Blood Type / Crossmatch: No Data to Display Complete Blood Count: No Data to Display Complete Metabolic Panel: No Data to Display Liver Function Panel: No Data to Display Coagulation Panel: No Data to Display Cardiac Panel: No Data to Display Arterial Blood Gas: No Data to Display Venous Blood Gas: No Data to Display Pancreas Panel: No Data to Display Thyroid Panel: No Data to Display Infectious Disease: No Data to Display Blood Cultures: No Data to Display Toxicology Panel: No Data to Display Anesthesia Assessment and Plan Anesthesia History Personal History: PONV Family History: No Family History of Anesthesia Complications Exercise Tolerance Exercise Tolerance: Metabolic Equivalents>4 Cardiac & Pulmonary Exam Cardiac Exam: Normal S1/S2 Heart Sounds Pulmonary Exam: Clear Bilateral Breath Sounds Implantable Cardiac Device Does patient have a Pacemaker or an ICD?: No Airway Exam Known Difficult Airway: No Mallampati Class: 3 Mouth Opening: Normal (> 3cm) Thyromental Distance: Greater than 3 cm Neck Range of Motion: Full ROM Neck Circumference: Normal Teeth Condition: Normal Dentition ASA Classification ASA Score: ASA 2 Emergency Case?: No NPO Status NPO Status: NPO Clears >2 hours, Solids >8 hours Anesthesia Plan Resuscitation Status: Full Code Anesthesia Technique: General Anesthesia Airway Planned: Natural Airway Monitors Used: Standard Monitors Preoperative Comments:: 69 yo female for EGD. Has been having increasing reflux symptoms, feels good today, currently hungry. Sig PMHx: HTN (losartan, furosemide), cardiomegaly (not noted on ECHO), PVD/carotid stenosis (denies, tested in [place]), GERD (omeprazole), hypothyroid (on replacement). cervical stenosis. former smoker, occ EtOH. ECHO: LVEF 65-70%, grade 1 diastolic dysfunction. mild mod MR, mild TR. Previous Anes: - colo, prop, natural airway, no issues.
[2024-11-27 06:18] VITALS: BP 128/57; PULSE 66; RESP 18; TEMP 36.6; O2SAT 95
[2024-11-27] MEDS: Lactated Ringers 1,000 ML 80 ML IV (06:51)
[2024-11-27 07:00] VITALS: BMI 28.3
--- NOTE | 2024-11-27 07:29 | ESO_PTH ---
PATIENT: Lilly Mayes LOC: [facility] U#:[id number] AGE/SX: 69/F ROOM: RE11/27/[address]: Stephon Keen MD : 1955 BED: DIS: 11/27/2024 SPEC #: [id number] RECD: 11/27/24 12:53 STATUS: AGUSTINA RE #: [id number] TONY: 11/27/24 07:[address]: Stephon Keen DEPT: Surgical Specimen RECD BY: Diamante Stewart ENTERED: 11/27/24 12:54 SP TYPE: Eso FABRICIO DR: Dayanna Michaels Tissues: 1 - ESOPHAGUS BIOPSY Procedures: GROSS AND MICRO LEVEL 4 Comments: [id number]
[2024-11-27 07:43] VITALS: BP 129/50; PULSE 62; RESP 18; TEMP 36.1; O2SAT 94
--- NOTE | 2024-11-27 07:52 | W.ANESPOSTOP ---
Postoperative Evaluation Date, Time and Location Date Performed: 11/27/24 Time Performed: 07:52 Patient Location: Day [facility] Unit Vital Signs Most Recent Imported Vital Signs: Most Recent Vital Signs Temp Pulse Resp BP Pulse Ox 36.1 C L 62 18 129/50 L 94 11/27/24 07:43 11/27/24 07:43 11/27/24 07:43 11/27/24 07:43 11/27/24 07:43 Pain Score Most Recent Pain Score: Most Recent Pain Score Pain Level 0 11/27/24 07:43 Assessment Mental Status: Awake (Alert & Oriented to Patient Baseline) Airway and Respiratory Function: Patent airway with normal (patient baseline) respiratory exam Cardiovascular Function: Hemodynamically Stable Hydration Status: Adequately Hydrated Nausea & Vomiting: No Nausea or Vomiting Pain: Pt. Denies Any Pain Peripheral Nerve Block: Patient did not receive a nerve block
[2024-11-27 08:16] VITALS: BP 146/54; PULSE 56; RESP 16; TEMP 36.1; O2SAT 97
== END 2024-11-27 08:21 | disposition home or self-care (01) ==
LOC: SUR 06:09
PROVIDERS: PCP Nurse Practitioner Family; Visit Provider Surgery
PROC: 0DJ68ZZ Inspection of Stomach, Via Natural or Artificial Opening Endoscopic (ICD-10-PCS; CPT 43235; principal; 2024-11-27 07:30)
DX: R13.10 Dysphagia, unspecified (principal); I10 Essential (primary) hypertension; K22.2 Esophageal obstruction; K22.89 Other specified disease of esophagus; K21.00 Gastro-esophageal reflux disease with esophagitis, without bleeding
CPT/HCPCS: 43239; 88305; J2405; J2704

== ENCOUNTER 2024-12-25 06:04 | Day surgery (SDC) | payer MEDICARE, SELFPAY ==
--- NOTE | 2024-12-24 15:28 | PDOC.DSDIS_ITS ---
Date of service: 12/25/24 Discharge Plan Disposition Patient Disposition: Home Condition: Good Discharge Details Reason For Visit: EGD with dilation Attending Provider: Stephon Keen Primary Care Provider: Dayanna Michaels Home Meds and New Rx's Prescriptions: Continued escitalopram oxalate 5 mg tablet 5 mg PO DAILY levothyroxine 100 mcg capsule 100 mcg PO DAILY atorvastatin 10 mg tablet 10 mg PO QHS losartan 100 mg tablet 100 mg PO DAILY fexofenadine [Brina Allergy] 180 mg tablet 180 mg PO DAILY PRN coenzyme Q10 [Co Q-10] 10 mg capsule 10 mg PO DAILY aspirin [Adult Aspirin Regimen] 81 mg tablet,delayed release (DR/EC) 81 mg PO DAILY fluticasone propionate [Allergy Relief (fluticasone)] 50 mcg/actuation s pray,suspension 1 spray intranasal DAILY PRN Rx Instructions: administer into each nostril furosemide 20 mg tablet 20 mg PO QAM omeprazole 20 mg capsule,delayed release(DR/EC) 40 mg PO DAILY PRN Discharge Instructions Additional Instructions: Xochitl was so nice seeing you again today, and am glad that you are having a nice response to the treatment so far. The narrowing certainly looks better today compared to last time. You probably recall, when we first started, the ring was so tight that I could not pass the camera beyond it. During the last round of EGD, I dilated up to 12 mm. Today, I was able to stretch it up to 18 mm quite easily. Just like last time, we will give this a few weeks and see how you feel. Will plan to repeat again around 1 month from now anticipating a very similar course. In the meantime, as we talked about beforehand, if you want to bring your omeprazole down to 20 mg a day, I think that is very reasonable. 1. If tolerated, consume a soft, low fiber diet for 1-2 days. [address] Do not drive, drink alcohol, operate machinery, make critical decisions, or do activities that require coordination or balance for 24 hours. 3. You may experience a sore throat for 24 to 48 hours. You may use throat lozenges or gargle with warm salt water to relieve the discomfort. 4. Because air was put into your stomach during the procedure, you may experience some belching. 5. Go directly to the emergency room if you notice any of the following: Develop chills (warm to touch), or if you have a thermometer and your temperature is above 101 Difficulty breathing or difficultly swallowing Persistent vomiting Severe abdominal pain, other than gas cramps Severe chest pain Black, tarry stools Any bleeding ? exceeding one tablespoon 6. Call your physician if the site where your intravenous was started becomes red, swollen, painful, and warm to touch. 7. Your physician has reviewed your pre-procedure medications. Please continue to take those medications as previously ordered. You will be given specific information/education regarding any changes to your medications before leaving. Activity:: Activity as Tolerated Diet:: As Tolerated Discharge Orders Discharge Orders: Discharge Order (Routine); Ordered 12/24/24 Ordered By: Stephon Keen DS: Diagnosis Discharge Diagnosis (1) Schatzki ring of distal esophagus: Status: Acute Asessment and Plan: Status post dilation; follow-up for repeat EGD in 1 month
--- NOTE | 2024-12-24 15:29 | W.PREOPHP ---
Assessment and Plan Assessment and plan (1) Schatzki ring of distal esophagus: Status: Acute Assessment and plan: We reviewed the plan for repeat EGD and dilation, and Xochitl was able to provide informed consent. We can proceed with the EGD as planned. History of Present Illness History of Present Illness Chief Complaint: Dysphagia Narrative: Lilly is a 69 year old woman with dysphagia secondary to an esophageal ring. She returns for a second EGD with therapeutic dilation. Since her last encounter and dilation of the ring, she did have some improvement of her swallowing symptoms. Otherwise, there have been no significant interval changes to the history or physical exam. PFSH All Active Problems Schatzki ring of distal esophagus (Acute) Dysphagia (Acute) Systolic murmur (Acute ~10/2023) Disorder of left atrium (Acute ~11/2023) Right lower quadrant pain (Acute) Tubulovillous adenoma of colon (Acute) GERD (gastroesophageal reflux disease) (Chronic) Pure hypercholesterolemia (Acute) Essential hypertension (Acute) Abnormal glucose (Acute) Diverticulosis of both small and large intestine without perforation or abscess without bleeding (Acute) Depression (Chronic) PVD (peripheral vascular disease) (Chronic) Carotid artery stenosis (Acute) Cardiomegaly (Acute) Rosacea (Acute) Hypothyroid (Chronic) Medical History Hyperlipidemia Metatarsalgia Raynaud's phenomenon Shingles 2020 Family history of alcoholism Spinal stenosis in cervical region Cervical disc displacement Surgical History History of esophagogastroduodenoscopy (~11/2024) History of colonoscopy (~07/2023) History of incisional hernia repair History of colon resection 2011 H/O shoulder surgery H/O: hysterectomy Social History (Updated 07/12/23 @ 14:44 by KULDEEP Shepard) Smoking/Tobacco Use Status: Former Tobacco Use Quit Date: 11/25/99 Smoking risk assessment performed?: Yes Alcohol Intake: current Alcohol Intake frequency: 0-2 drinks per day Alcohol type: beer Drug use: Never Substance use type: does not use Housing: house Do you feel safe at home: Yes Do you feel safe in your relationship?: Yes Meds Allergies and Home Medications Allergies Allergy/AdvReac Type Severity Reaction Status Date / Time penicillin V Allergy Severe as child Verified 12/25/24 06:18 Home Medications ?Medication ?Instructions ?Recorded ?Confirmed ?Type aspirin 81 mg tablet,delayed 81 mg PO DAILY 12/24/22 12/25/24 History release (Adult Aspirin Regimen) atorvastatin 10 mg tablet 10 mg PO QHS 12/24/22 12/25/24 History coenzyme Q10 10 mg capsule (Co 10 mg PO DAILY 12/24/22 12/25/24 History Q-10) escitalopram oxalate 5 mg tablet 5 mg PO DAILY 12/24/22 12/25/24 History fexofenadine 180 mg tablet 180 mg PO DAILY PRN 12/24/22 12/25/24 History (Brina Allergy) levothyroxine 100 mcg capsule 100 mcg PO DAILY 12/24/22 12/25/24 History losartan 100 mg tablet 100 mg PO DAILY 12/24/22 12/25/24 History fluticasone propionate 50 1 spray intranasal DAILY PRN 07/11/23 12/25/24 History mcg/actuation nasal spray,suspension (Allergy Relief (fluticasone)) furosemide 20 mg tablet 20 mg PO QAM 10/21/24 12/25/24 History omeprazole 20 mg capsule,delayed 40 mg PO DAILY PRN 10/21/24 12/25/24 History release Exam Const General: cooperative, healthy appearing and not in acute distress Neck Neck: normal visual inspection, no lymphadenopathy and supple Resp Effort & Inspection: normal respiratory effort Auscultation: clear to auscultation bilaterally Cardio Jugular venous pressure: no JVD Rate: regular rate Rhythm: regular rhythm Heart Sounds: S1 normal and S2 normal Neuro General: patient alert, patient awake and patient oriented x3 Psych Appearance: grossly normal
--- NOTE | 2024-12-24 15:31 | ENDO_ITS ---
Date of service: 12/25/24 Time of Service: 07:50 Endoscopy Report DATE OF PROCEDURE: 12/25/24 PRE-OP DIAGNOSIS: Schatzki ring POST-OP DIAGNOSIS: same PROCEDURE: EGD with dilation SURGEON: Stephon Keen ANESTHESIA TYPE: General:No Airway ESTIMATED BLOOD LOSS: 3 PATHOLOGY: none sent COMPLICATIONS: None DISPOSITION: same day INDICATIONS: Xochitl is a 69 year old woman with a symptomatic Schatzki ring. FINDINGS: Schatzki's ring approximately 35 cm from the incisors. PROCEDURE DESCRIPTION: After the initiation of anesthesia, and with the assistance of a bite block, I advanced a standard gastroscope through the mouth past the hypopharynx and into the esophagus.? I advanced down to the Schatzki's ring which measured approxi mately 35 cm from the incisors. The lumen appeared larger than was appreciated on previous endoscopy. In fact, I was easily able to advance the camera beyond the narrowing into the top portion of the stomach. I then brought the camera back up to the ring, and dilated to 15 mm. Site was irrigated clean. There was minimal mucosal injury. I performed another dilation to 18 mm without any difficulty. Similarly, I irrigated the field clean, there was a small mucosal tear, with no evidence of any injury to the underlying muscularis. Given the progress that we made from the previous scope, I felt that the dilation up to 18 mm was appropriate for today. Will continue the PPI therapy, and plan to rescoped in about 1 month. I then advanced the camera back down into the stomach proper and emptied it completely. The camera was then brought out along the length of the esophagus 1 last time ensuring complete evacuation.
[2024-12-25 06:21] VITALS: BP 165/63; PULSE 64; RESP 16; TEMP 36.6; O2SAT 97
--- NOTE | 2024-12-25 07:05 | ANES.PREOP_ITS ---
General Info Date of Service Date Performed: 12/25/24 Height: 5 ft 1 in Weight: 65.7 kg Body Mass Index (BMI): 27.3 Surgical Procedure: Operation Date: 12/25/24 07:35 Proposed Procedure Side Surgeon p Gastroscopy Stephon Keen MD Meds Allergies and Home Medications Allergies Allergy/AdvReac Type Severity Reaction Status Date / Time penicillin V Allergy Severe as child Verified 12/25/24 06:18 Home Medication ?Medication ?Instructions ?Recorded aspirin 81 mg tablet,delayed 81 mg PO DAILY 12/24/22 release (Adult Aspirin Regimen) atorvastatin 10 mg tablet 10 mg PO QHS 12/24/22 coenzyme Q10 10 mg capsule (Co 10 mg PO DAILY 12/24/22 Q-10) escitalopram oxalate 5 mg tablet 5 mg PO DAILY 12/24/22 fexofenadine 180 mg tablet 180 mg PO DAILY PRN 12/24/22 (Brina Allergy) levothyroxine 100 mcg capsule 100 mcg PO DAILY 12/24/22 losartan 100 mg tablet 100 mg PO DAILY 12/24/22 fluticasone propionate 50 1 spray intranasal DAILY PRN 07/11/23 mcg/actuation nasal spray,suspension (Allergy Relief (fluticasone)) furosemide 20 mg tablet 20 mg PO QAM 10/21/24 omeprazole 20 mg capsule,delayed 40 mg PO DAILY PRN 10/21/24 release Current Visit Medications: Current Medications Generic Name Dose Route Start Last Admin Trade Name Freq PRN Reason Stop Dose Admin Hyoscyamine Sulfate 0.125 mg 12/24/24 15:32 Hyoscyamine 0.125 Mg Sl/Oral/Chew SL 01/23/25 15:31 DIRECTED PRN Ringer's Solution 1,000 mls @ 80 mls/hr 12/25/24 06:00 IV 12/25/24 23:59 INFUSION TAIWO IV Miscellaneous Supplies 1 each 12/25/24 06:00 Iv Access IV 12/25/24 23:59 DIRECTED TAIWO Sodium Chloride 0 ml 12/25/24 06:00 Normal Saline Flush 10 Ml Syr IV 12/25/24 23:59 PRN PRN Sodium Chloride 0 ml 12/25/24 06:00 Normal Saline 10 Ml Vial IJ 12/25/24 23:59 DIRECTED PRN Sterile Water 0 ml 12/25/24 06:00 Water,Injection,Sterile 10 Ml Vial IJ 12/25/24 23:59 DIRECTED PRN PFSH Active Problems Active Problems: Problem Status Onset Code Schatzki ring of distal esophagus Acute K22.2 Dysphagia Acute R13.10 Systolic murmur Acute ~10/2023 R01.1 Disorder of left atrium Acute ~11/2023 I51.9 Right lower quadrant pain Acute R10.31 Tubulovillous adenoma of colon Acute D12.6 GERD (gastroesophageal reflux disease) Chronic K21.9 Pure hypercholesterolemia Acute E78.00 Essential hypertension Acute I10 Abnormal glucose Acute R73.09 Diverticulosis of both small and large intestine without perforation or abscess without bleeding Acute K57.50 Depression Chronic F32.A PVD (peripheral vascular disease) Chronic I73.9 Carotid artery stenosis Acute I65.29 Cardiomegaly Acute I51.7 Rosacea Acute L71.9 Hypothyroid Chronic E03.9 Medical History Medical History Hyperlipidemia Metatarsalgia Raynaud's phenomenon Shingles 2020 Family history of alcoholism Spinal stenosis in cervical region Cervical disc displacement Surgical History Surgical History History of esophagogastroduodenoscopy (~11/2024) History of colonoscopy (~07/2023) History of incisional hernia repair History of colon resection 2011 H/O shoulder surgery H/O: hysterectomy Tobacco Smoking/Tobacco Use Status: Former Tobacco Use Alcohol Alcohol Intake: current Alcohol intake frequency: 0-2 drinks per day Alcohol type: beer Substance Use Substance use: Never Substance use type: does not use Vital Signs and Lab Results Vital Signs Most Recent Vital Signs in EMR: Most Recent Vital Signs Temp Pulse Resp BP Pulse Ox 36.6 C 64 16 165/63 H 97 12/25/24 06:21 12/25/24 06:21 12/25/24 06:21 12/25/24 06:21 12/25/24 06:21 Lab Results Blood Type / Crossmatch: No Data to Display Complete Blood Count: No Data to Display Complete Metabolic Panel: No Data to Display Liver Function Panel: No Data to Display Coagulation Panel: No Data to Display Cardiac Panel: No Data to Display Arterial Blood Gas: No Data to Display Venous Blood Gas: No Data to Display Pancreas Panel: No Data to Display Thyroid Panel: No Data to Display Infectious Disease: No Data to Display Blood Cultures: No Data to Display Toxicology Panel: No Data to Display Imaging and Studies Imaging and Studies Study information below may be from another EMR and interpreted by another provider. Please see original notes in EMR for more complete details. Echocardiogram Summary: Admission Date: 11/22/23 : 1955 Age: 68 APPROVED REPORT EXAM: Comprehensive 2D, Doppler, and color-flow Echocardiogram Patient Location: [facility] Supervisor: Betito Neri RDCS (AE) Indications: murmur Other Information Study Quality: Good Conclusion 1. Moderately dilated left atrium, other chambers normal. 2. Normal LV systolic function,EF 65-70%.No wall motion abnormality. Grade 1 diastolic dysfunction 3. Anatomically normal valves. Mild to moderate MR,mild AI,mild TR. 4. No pericardial effusion. Anesthesia Assessment and Plan Anesthesia History Personal History: No History of Anesthesia Complications Family History: No Family History of Anesthesia Complications Exercise Tolerance Exercise Tolerance: Metabolic Equivalents>4 Pertinent Negatives Pertinent Negatives: No Symptoms of GERD Cardiac & Pulmonary Exam Cardiac Exam: Normal S1/S2 Heart Sounds Pulmonary Exam: Clear Bilateral Breath Sounds Implantable Cardiac Device Does patient have a Pacemaker or an ICD?: No Airway Exam Known Difficult Airway: No Mallampati Class: 3 Mouth Opening: Normal (> 3cm) Thyromental Distance: Greater than 3 cm Neck Range of Motion: Full ROM Neck Circumference: Normal Teeth Condition: Normal Dentition ASA Classification ASA Score: ASA 2 Emergency Case?: No NPO Status NPO Status: NPO Clears >2 hours, Solids >8 hours Anesthesia Plan Resuscitation Status: Full Code Anesthesia Technique: General Anesthesia Airway Planned: Natural Airway Monitors Used: Standard Monitors
[2024-12-25 07:09] VITALS: BMI 27.3
[2024-12-25] MEDS: Lactated Ringers 1,000 ML 80 ML IV (07:16)
[2024-12-25 07:53] VITALS: BP 100/41; PULSE 58; RESP 17; TEMP 36.4; O2SAT 96
[2024-12-25 08:09] VITALS: BP 128/52; PULSE 57; RESP 20; TEMP 36.4; O2SAT 95
[2024-12-25] MEDS: Normal Saline Flush 10 ML SYR IV (08:13)
--- NOTE | 2024-12-25 08:26 | W.ANESPOSTOP ---
Postoperative Evaluation Date, Time and Location Date Performed: 12/25/24 Time Performed: 08:10 Patient Location: Day Surgery Unit Vital Signs Most Recent Imported Vital Signs: Most Recent Vital Signs Temp Pulse Resp BP Pulse Ox 36.4 C L 57 L 20 128/52 L 95 12/25/24 08:09 12/25/24 08:09 12/25/24 08:09 12/25/24 08:09 12/25/24 08:09 Assessment Mental Status: Awake (Alert & Oriented to Patient Baseline) Airway and Respiratory Function: Patent airway with normal (patient baseline) respiratory exam Cardiovascular Function: Hemodynamically Stable Hydration Status: Adequately Hydrated Nausea & Vomiting: No Nausea or Vomiting Pain: Pt. Denies Any Pain Peripheral Nerve Block: Patient did not receive a nerve block
== END 2024-12-25 08:27 | disposition home or self-care (01) ==
LOC: SUR 06:04
PROVIDERS: PCP Nurse Practitioner Family; Visit Provider Surgery
PROC: 0DJ68ZZ Inspection of Stomach, Via Natural or Artificial Opening Endoscopic (ICD-10-PCS; CPT 43235; principal; 2024-12-25 07:30)
DX: K22.2 Esophageal obstruction (principal)
CPT/HCPCS: 43249; J2003; J2704

== ENCOUNTER → 2025-05-13 08:04 | Outpatient (BNVA) | payer MEDICARE, SELFPAY | PROVIDERS: PCP Nurse Practitioner Family; Referring Provider Nurse Practitioner Family; Visit Provider Physical Therapy Assistant | DX: K22.2 Esophageal obstruction (principal); K21.9 Gastro-esophageal reflux disease without esophagitis | CPT/HCPCS: 99213 ==

== ENCOUNTER 2025-05-17 11:11 | Day surgery (SDC) | payer MEDICARE, SELFPAY ==
--- NOTE | 2025-05-16 20:51 | PDOC.DSDIS_ITS ---
Date of service: 05/17/25 Discharge Plan Disposition Patient Disposition: Home Condition: Good Discharge Details Reason For Visit: EGD with dilation Attending Provider: Stephon Keen Primary Care Provider: Dayanna Michaels Home Meds and New Rx's Prescriptions: Continued escitalopram oxalate 5 mg tablet 5 mg PO DAILY levothyroxine 100 mcg capsule 100 mcg PO DAILY atorvastatin 10 mg tablet 10 mg PO QHS losartan 100 mg tablet 100 mg PO DAILY fexofenadine [Brina Allergy] 180 mg tablet 180 mg PO DAILY PRN coenzyme Q10 [Co Q-10] 10 mg capsule 10 mg PO DAILY aspirin [Adult Aspirin Regimen] 81 mg tablet,delayed release (DR/EC) 81 mg PO DAILY fluticasone propionate [Allergy Relief (fluticasone)] 50 mcg/actuation s pray,suspension 1 spray intranasal DAILY PRN Rx Instructions: administer into each nostril furosemide 20 mg tablet 20 mg PO QAM omeprazole 20 mg capsule,delayed release(DR/EC) 20 mg PO DAILY cholecalciferol (vitamin D3) 10 mcg (400 unit) capsule 10 mcg PO DAILY Discharge Instructions Additional Instructions: Xochitl, it is great seeing you today. I hope you feel well after this. The area of concern in the lower part of your esophagus looks about the same as it did previously. Certainly, nothing worrisome. And reassuringly, it is still relatively open compared to previous times that we did the procedure. I started with an 18 mm balloon, which is the largest we have stretched you to before. This went very smoothly, and I felt comfortable going up to 19 mm. That balloon disrupted the ring enough that it should provide some relief. The largest balloon that we have here is 20 mm, and I suspect that we could probably stretch it up to that point, but since you have done well with 18 mm in the past, I think it is reasonable to hold tight for right now. See how you feel over the next few weeks. If you want to go ahead and schedule another elective dilation, I think that would be very reasonable. Alternatively, if you are feeling well, we can just do it as needed. Just keep me posted, am happy to get you into the schedule whenever you like. Stand Alone Forms: Anesthesia Discharge Inst., Ana Yap ([facility]) Activity:: Activity as Tolerated Diet:: As Tolerated Discharge Orders Discharge Orders: Discharge Order (Routine); Ordered 05/16/25 Ordered By: Stephon Keen DS: Diagnosis Discharge Diagnosis (1) Schatzki ring of distal esophagus: Status: Acute Asessment and Plan: Status post EGD with dilation
--- NOTE | 2025-05-16 20:57 | W.PM.ENDDOP ---
Date of service: 05/17/25 Time of Service: 13:59 Endoscopy Report DATE OF PROCEDURE: 05/17/25 PRE-OP DIAGNOSIS: Schatzki's ring POST-OP DIAGNOSIS: same PROCEDURE: EGD with dilation SURGEON: Stephon Keen ANESTHESIA TYPE: General:No Airway ESTIMATED BLOOD LOSS: 5 PATHOLOGY: none sent COMPLICATIONS: None DISPOSITION: same day INDICATIONS: Lilly is a 69 year old woman with a symptomatic schatzki ring. She needs a therapeutic dilation PROCEDURE START TIME: 13:34 PROCEDURE END TIME: 13:44 FINDINGS: Schatzki's ring around 35 cm from the incisors PROCEDURE DESCRIPTION: After the initiation of anesthesia, and with the assistance of a bite block, I advanced a standard gastroscope down through the hypopharynx into the esophagus. The upper and midesophagus were normal and healthy appearing. I saw no evidence of any plaques or inflammation. Similar to previous endoscopies, around 35 cm from the incisors is a Schatzki's ring. There is no evidence of any active inflammation. Narrowband imaging was used to assist with the analysis. There were no features concerning for malignancy or any other significant pathology. Prior to manipulating this, I can pass the camera across it into the stomach. The stomach was grossly normal. I then brought the camera back up to the ring, and perform balloon dilation to 18 mm. There was some purchase of the ring on the side of the balloon, but it did not feel particularly tight. After dilation, the balloon was let down, and the camera was passed across this ring once again. There was a small amount of disruption, but I felt I could safely dilate up to 19 mm. Therefore, repeat dilation was performed at 19 mm. Xochitl tolerated this fine. After this, the balloon was let down and removed, and again the camera was passed across the ring. There was more significant disruption of the tissue, with no evidence of any muscularis injury. I then emptied the stomach, and brought the camera out along the length of the esophagus 1 last time.
[2025-05-17 11:50] VITALS: BP 144/74; PULSE 62; RESP 18; TEMP 36.4; O2SAT 96
[2025-05-17] MEDS: Lactated Ringers 1,000 ML 80 ML IV (12:50)
--- NOTE | 2025-05-17 13:05 | W.ANESPRE ---
General Info Date of Service Date Performed: 05/17/25 Height: 5 ft 1 in Weight: 65.8 kg Body Mass Index (BMI): 27.3 Surgical Procedure: Operation Date: 05/17/25 12:50 Proposed Procedure Side Surgeon p Gastroscopy with Possible Dilation Stephon Keen MD Meds Allergies and Home Medications Allergies Allergy/AdvReac Type Severity Reaction Status Date / Time penicillin V Allergy Severe as child Verified 05/17/25 12:26 Home Medication ?Medication ?Instructions ?Recorded aspirin 81 mg tablet,delayed 81 mg PO DAILY 12/24/22 release (Adult Aspirin Regimen) atorvastatin 10 mg tablet 10 mg PO QHS 12/24/22 coenzyme Q10 10 mg capsule (Co 10 mg PO DAILY 12/24/22 Q-10) escitalopram oxalate 5 mg tablet 5 mg PO DAILY 12/24/22 fexofenadine 180 mg tablet 180 mg PO DAILY PRN 12/24/22 (Brina Allergy) levothyroxine 100 mcg capsule 100 mcg PO DAILY 12/24/22 losartan 100 mg tablet 100 mg PO DAILY 12/24/22 fluticasone propionate 50 1 spray intranasal DAILY PRN 07/11/23 mcg/actuation nasal spray,suspension (Allergy Relief (fluticasone)) furosemide 20 mg tablet 20 mg PO QAM 10/21/24 omeprazole 20 mg capsule,delayed 20 mg PO DAILY 10/21/24 release cholecalciferol (vitamin D3) 10 10 mcg PO DAILY 05/07/25 mcg (400 unit) capsule Current Visit Medications: Current Medications Generic Name Dose Route Start Last Admin Trade Name Freq PRN Reason Stop Dose Admin Ringer's Solution 1,000 mls @ 80 mls/hr 05/17/25 06:00 05/17/25 12:50 IV 05/17/25 23:59 80 mls/hr INFUSION TAIWO Administration IV Miscellaneous Supplies 1 each 05/17/25 06:00 Iv Access IV 05/17/25 23:59 DIRECTED TAIWO Sodium Chloride 0 ml 05/17/25 06:00 Normal Saline Flush 10 Ml Syr IV 05/17/25 23:59 PRN PRN Sodium Chloride 0 ml 05/17/25 06:00 Normal Saline 10 Ml Vial IJ 05/17/25 23:59 DIRECTED PRN Sterile Water 0 ml 05/17/25 06:00 Water,Injection,Sterile 10 Ml Vial IJ 05/17/25 23:59 DIRECTED PRN PFSH Active Problems Active Problems: Problem Status Onset Code Schatzki ring of distal esophagus Acute K22.2 Dysphagia Acute R13.10 Systolic murmur Acute ~10/2023 R01.1 Disorder of left atrium Acute ~11/2023 I51.9 Right lower quadrant pain Acute R10.31 Tubulovillous adenoma of colon Acute D12.6 GERD (gastroesophageal reflux disease) Chronic K21.9 Pure hypercholesterolemia Acute E78.00 Essential hypertension Acute I10 Abnormal glucose Acute R73.09 Diverticulosis of both small and large intestine without perforation or abscess without bleeding Acute K57.50 Depression Chronic F32.A PVD (peripheral vascular disease) Chronic I73.9 Carotid artery stenosis Acute I65.29 Cardiomegaly Acute I51.7 Rosacea Acute L71.9 Hypothyroid Chronic E03.9 Medical History Medical History Hyperlipidemia Metatarsalgia Raynaud's phenomenon Shingles 2020 Family history of alcoholism Spinal stenosis in cervical region Cervical disc displacement Surgical History Surgical History History of esophagogastroduodenoscopy (~11/2024) History of colonoscopy (~07/2023) History of incisional hernia repair History of colon resection 2011 H/O shoulder surgery H/O: hysterectomy Tobacco Smoking/Tobacco Use Status: Former Tobacco Use Alcohol Alcohol Intake: current Alcohol intake frequency: 0-2 drinks per day Alcohol type: beer Substance Use Substance use: Never Substance use type: does not use Vital Signs and Lab Results Vital Signs Most Recent Vital Signs in EMR: Most Recent Vital Signs Temp Pulse Resp BP Pulse Ox 36.4 C L 62 18 144/74 H 96 05/17/25 11:50 05/17/25 11:50 05/17/25 11:50 05/17/25 11:50 05/17/25 11:50 Imaging and Studies Imaging and Studies Study information below may be from another EMR and interpreted by another provider. Please see original notes in EMR for more complete details. Echocardiogram Summary: Admission Date: 11/22/23 : 1955 Age: 68 APPROVED REPORT EXAM: Comprehensive 2D, Doppler, and color-flow Echocardiogram Patient Location: Out-Patient Base Filler: Betito Neri RDCS (AE) Indications: murmur Other Information Study Quality: Good Conclusion 1. Moderately dilated left atrium, other chambers normal. 2. Normal LV systolic function,EF 65-70%.No wall motion abnormality. Grade 1 diastolic dysfunction 3. Anatomically normal valves. Mild to moderate MR,mild AI,mild TR. 4. No pericardial effusion. Anesthesia Assessment and Plan Anesthesia History Personal History: No History of Anesthesia Complications Family History: No Family History of Anesthesia Complications Exercise Tolerance Exercise Tolerance: Metabolic Equivalents>4 Pertinent Negatives Pertinent Negatives: No Symptoms of GERD, No Major Cardiovascular Symptoms or Complaints, No Major Pulmonary Symptoms or Complaints and No History of CVA/TIA Cardiac & Pulmonary Exam Cardiac Exam: Normal S1/S2 Heart Sounds Pulmonary Exam: Clear Bilateral Breath Sounds Implantable Cardiac Device Does patient have a Pacemaker or an ICD?: No Airway Exam Known Difficult Airway: No Mallampati Class: 3 Mouth Opening: Normal (> 3cm) Thyromental Distance: Greater than 3 cm Neck Range of Motion: Full ROM Neck Circumference: Normal Teeth Condition: Normal Dentition ASA Classification ASA Score: ASA 2 Emergency Case?: No NPO Status NPO Status: NPO Clears >2 hours, Solids >8 hours Anesthesia Plan Resuscitation Status: Full Code Anesthesia Technique: General Anesthesia Airway Planned: Natural Airway Monitors Used: Standard Monitors
[2025-05-17 13:26] VITALS: BMI 27.3
[2025-05-17 13:55] VITALS: BP 93/38; PULSE 63; RESP 18; TEMP 36.6; O2SAT 98
[2025-05-17 14:21] VITALS: BP 148/71; PULSE 60; RESP 16; TEMP 36.5; O2SAT 97
--- NOTE | 2025-05-17 14:45 | W.ANESPOSTOP ---
Postoperative Evaluation Date, Time and Location Date Performed: 05/17/25 Time Performed: 14:45 Patient Location: Day Surgery Unit Vital Signs Most Recent Imported Vital Signs: Most Recent Vital Signs Temp Pulse Resp BP Pulse Ox 36.5 C 60 16 148/71 H 97 05/17/25 14:21 05/17/25 14:21 05/17/25 14:21 05/17/25 14:21 05/17/25 14:21 Pain Score Most Recent Pain Score: Most Recent Pain Score Pain Level 0 05/17/25 14:21 Assessment Mental Status: Awake (Alert & Oriented to Patient Baseline) Airway and Respiratory Function: Patent airway with normal (patient baseline) respiratory exam Cardiovascular Function: Hemodynamically Stable Hydration Status: Adequately Hydrated Nausea & Vomiting: No Nausea or Vomiting Pain: Pt. Denies Any Pain Peripheral Nerve Block: Patient did not receive a nerve block
== END 2025-05-17 14:24 | disposition home or self-care (01) ==
LOC: SUR 11:11
PROVIDERS: PCP Nurse Practitioner Family; Visit Provider Surgery
PROC: 0D758ZZ Dilation of Esophagus, Via Natural or Artificial Opening Endoscopic (ICD-10-PCS; CPT 43249; principal; 2025-05-17 12:45)
DX: K22.2 Esophageal obstruction (principal)
CPT/HCPCS: 43249; J2704

== ENCOUNTER 2025-07-08 10:25 | Outpatient (REF) | payer MEDICARE, SELFPAY ==
[2025-07-08 17:54] LABS: Hemoglobin A1C 5.8 % (<5.7)
[2025-07-08 18:09] LABS: ALT 33 U/L (14-59); AST 21 U/L (15-37); Albumin 4.0 g/dL (3.4-5.0); Alkaline Phosphatase 95 U/L (46-116); Anion Gap 8.7 mmol/L (3-11); BUN 12 mg/dL (7-18); Bilirubin, Total 0.7 mg/dL (0.2-1.0); CO2 30.3 mmol/L (21.0-32.0); Calcium 9.4 mg/dL (8.5-10.1); Chloride 98 mmol/L (98-107); Estimated GFR 92.41 (mL/min/1.73m2); Glucose 109 mg/dL (74-106); Magnesium 2.2 mg/dL (1.8-2.4); Potassium 4.4 mmol/L (3.5-5.1); Sodium 137 mmol/L (136-145); TSH 2.79 uIU/mL (0.36-3.74); Total Protein 7.3 g/dL (6.4-8.2); Vitamin B12 331 pg/mL (193-986)
== END 2025-07-08 10:26 | disposition home or self-care (01) ==
LOC: NCHCN 10:25
PROVIDERS: PCP Nurse Practitioner Family; Visit Provider Nurse Practitioner Family
DX: E78.5 Hyperlipidemia, unspecified (principal); R73.03 Prediabetes; E03.9 Hypothyroidism, unspecified; Z00.00 Encounter for general adult medical examination without abnormal findings
CPT/HCPCS: 80053; 82607; 83036; 83735; 84443

== ENCOUNTER → 2025-10-06 01:19 | Outpatient (CLI) | payer MEDICARE, SELFPAY ==
--- NOTE | 2025-10-06 08:41 | DI.MAMMO_ITS ---
Exam(s) MAMMO SCREENING EXAM: MAMMO SCREENING CLINICAL HISTORY: SCREENING, Z12.31 TECHNIQUE: Mammograms were interpreted according to the usual protocol including computer analysis with CAD system, tomosynthesis and C-view imaging. COMPARISON: 2015 through 2022 FINDINGS: The breasts are composed of scattered fibroglandular densities, Breast Density category B. No suspicious masses or suspicious microcalcifications are seen. No skin thickening or abnormal axillary lymph nodes are seen. There has been no significant change from prior exams. IMPRESSION: BI-RADS Category 1, Negative mammogram Yearly screening mammography is recommended. Breast Density - Category B - There are scattered areas of fibroglandular density. Breast density Category C or D implies that the patient has dense breast tissue. Dense breast tissue can make it harder to find cancer on a mammogram. Dense breast tissue is also associated with an increased risk of breast cancer. This information about the result of the mammogram report was provided to the patient to raise their awareness. Use this report when you speak with the patient about their risks for breast cancer, which includes their family history. At that time, you may recommend additional screening tests (Ultrasound or MRI) as these tests may add significant information. A negative radiographic report should not delay biopsy if a dominant or clinically suspicious mass is present. Up to ten percent of cancers are not identified on mammography. A negative report may reinforce clinical impression. Adenosis and dense breasts may obscure an underlying neoplasm. False positive reports average 6 to 10%. Patient will receive a letter notifying them of these results.
== END ==
LOC: DI 01:20
PROVIDERS: PCP Nurse Practitioner Family; Visit Provider Nurse Practitioner Family
DX: Z12.31 Encounter for screening mammogram for malignant neoplasm of breast (principal); R92.323 Mammographic fibroglandular density, bilateral breasts
CPT/HCPCS: 77063; 77067

== ENCOUNTER 2025-10-09 06:47 | Observation (INO) | payer MEDICARE, SELFPAY ==
[2025-10-09] VITALS (97 sets, daily range): BP systolic 134–229; BP diastolic 57–94; PULSE 62–84; RESP 10–32; TEMP 36.6–37; O2SAT 89–100
--- NOTE | 2025-10-09 06:45 | RT.EKG_ITS ---
APPROVED REPORT Exam: Resting ECG Reason for Exam: Left Sided Numbness Patient Location: E HR:67 bpm ECG Measurements Heart Rate 67 AXIS VT 147 P 54 QRSd 92 QRS 38 QT 418 T 28 QTc 441 Conclusion Sinus rhythm...normal P axis, V-rate 60- 99 Probable left atrial enlargement...P >50mS, <-0.10mV V1
--- NOTE | 2025-10-09 07:05 | W.ED.GENAD ---
Discharge Plan Disposition Patient Disposition: Admit to [facility] Condition: Stable Discharge Details Clinical Impression: Left arm numbness Primary Care Provider: Dayanna Michaels ED Provider: Nigel Marsh Home Meds and New Rx's Prescriptions: No Action escitalopram oxalate 5 mg tablet 5 mg PO DAILY levothyroxine 100 mcg capsule 100 mcg PO DAILY atorvastatin 10 mg tablet 10 mg PO QHS losartan 100 mg tablet 100 mg PO DAILY fexofenadine [Brina Allergy] 180 mg tablet 180 mg PO DAILY PRN coenzyme Q10 [Co Q-10] 10 mg capsule 10 mg PO DAILY aspirin [Adult Aspirin Regimen] 81 mg tablet,delayed release (DR/EC) 81 mg PO DAILY fluticasone propionate [Allergy Relief (fluticasone)] 50 mcg/actuation spray,suspension 1 spray intranasal DAILY PRN Rx Instructions: administer into each nostril furosemide 20 mg tablet 20 mg PO QAM omeprazole 20 mg capsule,delayed release(DR/EC) 20 mg PO DAILY cholecalciferol (vitamin D3) 10 mcg (400 unit) capsule 10 mcg PO DAILY HPI General Mode of arrival: ambulatory. Date/Time Provider Initiated Documentation: 10/09/25 06:51. Limitations to Documentation: no limitations. Information obtained by: patient. History of Present Illness 69 year old F presents to the emergency department with the chief complaint of left face and arm numbness, described as moderate, Patient started experiencing this hour(s) (10) and it has been constant. No relieving factors improve symptom(s), No exacerbating factors reported . Patient notes denies chest pain and shortness of breath. Patient did receive the following treatments prior to arrival, none Related Data Home Medications Medication Instructions Recorded Confirmed aspirin 81 mg tablet,delayed 81 mg PO DAILY 12/24/22 10/09/25 release (Adult Aspirin Regimen) atorvastatin 10 mg tablet 10 mg PO QHS 12/24/22 10/09/25 coenzyme Q10 10 mg capsule (Co 10 mg PO DAILY 12/24/22 10/09/25 Q-10) escitalopram oxalate 5 mg tablet 5 mg PO DAILY 12/24/22 10/09/25 fexofenadine 180 mg tablet 180 mg PO DAILY PRN 12/24/22 10/09/25 (Brina Allergy) levothyroxine 100 mcg capsule 100 mcg PO DAILY 12/24/22 10/09/25 losartan 100 mg tablet 100 mg PO DAILY 12/24/22 10/09/25 fluticasone propionate 50 1 spray intranasal DAILY PRN 07/11/23 10/09/25 mcg/actuation nasal spray,suspension (Allergy Relief (fluticasone)) furosemide 20 mg tablet 20 mg PO QAM 10/21/24 10/09/25 omeprazole 20 mg capsule,delayed 20 mg PO DAILY 10/21/24 10/09/25 release cholecalciferol (vitamin D3) 10 10 mcg PO DAILY 05/07/25 10/09/25 mcg (400 unit) capsule Allergies Allergy/AdvReac Type Severity Reaction Status Date / Time penicillin V Allergy Severe as child Verified 10/09/25 06:57 General Stated Complaint: GenMedical JOSÉ ANTONIO: 3 Review of Systems All systems reviewed & are unremarkable except as noted in HPI and below Constitutional Constitutional: Denies chills, Denies fever(s) and Denies weakness Cardiovascular Cardiovascular: Denies chest pain and Denies dyspnea Respiratory Respiratory: Denies cough and Denies dyspnea Gastrointestinal Gastrointestinal: Denies abdominal pain, Denies nausea and Denies vomiting Musculoskeletal Musculoskeletal: Reports numbness Neurologic Neurologic: Reports numbness and Denies weakness Exam Const General: no acute distress Orientation: alert [facility] Head: normal to inspection Ears: external ears normal General nose exam: external nose normal Mouth: moist mucous membranes Eyes General: appearance normal, both eyes and all related structures Neck Neck: normal visual inspection Resp Effort & Inspection: normal respiratory effort and able to speak in complete sentences Cardio Jugular venous pressure: no JVD Rate: regular rate Heart Sounds: no murmurs Skin General skin exam: no rashes or lesions noted Neuro General: patient alert and patient oriented x3 Cranial Nerves: CN's II-XI intact bilaterally Cognition: normal cognition Speech: speech normal Motor: strength 5/5 throughout and no pronator drift Extrem General: normal to inspection Psych Mental Status: mental status grossly normal Course Vital Signs Vital signs: Vital Signs Pulse 72 10/09/25 06:53 Respiratory Rate 16 10/09/25 06:53 Blood Pressure 229/94 H 10/09/25 06:53 Pulse Oximetry 94 10/09/25 06:53 Temperature Source Oral 10/09/25 06:53 Pulse 72 10/09/25 06:53 Respiratory Rate 16 10/09/25 06:53 Blood Pressure 229/94 H 10/09/25 06:53 Blood Pressure Position Sitting 10/09/25 06:53 Pulse Oximetry 94 10/09/25 06:53 Oxygen Delivery Method Room Air 10/09/25 06:53 Oxygen Flow Rate 0 10/09/25 06:53 Pain Level 0 10/09/25 06:53 Medical Decision Making 69-year-old female with a history of hypertension, former smoker, comes in with left-sided face and arm numbness that started at approximately 9:00 last night. She denies any weakness, vision changes, speech changes, falls, chest pain, difficulty breathing. She is ambulatory on arrival. She is oriented x 4 speaking clearly. She has no drift in any extremity, cranial nerves II through XII are intact. She does have subjective loss soft touch to the left arm from the elbow distal and also on the left cheek. Concern for possible CVA given her symptoms started last night around 9:00 she is not a lytic candidate, will obtain labs and a CTA and a teleneurology consult. CT and CTA negative, patient met with teleneurology who advised this could be small thalamic CVA and recommending loading with aspirin and Plavix, she had already taken 81 mg of aspirin at home so we will order 243 mg of aspirin and 300 mg of Plavix. They do recommend admission for telemetry monitoring and an MRI and echo which I confirmed is okay to wait until Saturday when it is available and they said that is not an issue. Will discuss with hospitalist. Differential Diagnosis Differential Diagnosis: cva, tia, electrolyte abnormality Lab Data Lab results reviewed: Yes I reviewed the patient's lab results. ECG Data Attestation: I personally reviewed and interpreted this ECG (s) as follows: Prior ECG tracings: not available for review Interpretation: sinus rate of 67 no stemi PFSH All Active Problems (Updated 10/09/25 @ 08:49 by Nigel Marsh MD) Left arm numbness (Acute) Schatzki ring of distal esophagus (Acute) Dysphagia (Acute) Systolic murmur (Acute ~10/2023) Disorder of left atrium (Acute ~11/2023) Right lower quadrant pain (Acute) Tubulovillous adenoma of colon (Acute) GERD (gastroesophageal reflux disease) (Chronic) Pure hypercholesterolemia (Acute) Essential hypertension (Acute) Abnormal glucose (Acute) Diverticulosis of both small and large intestine without perforation or abscess without bleeding (Acute) Depression (Chronic) PVD (peripheral vascular disease) (Chronic) Carotid artery stenosis (Acute) Cardiomegaly (Acute) Rosacea (Acute) Hypothyroid (Chronic) Medical History (Updated 10/09/25 @ 08:49 by Nigel Marsh MD) Hyperlipidemia Metatarsalgia Raynaud's phenomenon Shingles 2020 Family history of alcoholism Spinal stenosis in cervical region Cervical disc displacement Surgical History (Updated 05/18/25 @ 13:08 by Whit Guillaume) History of esophagogastroduodenoscopy (~04/2025) with dilation History of colonoscopy (~07/2023) History of incisional hernia repair History of colon resection 2011 H/O shoulder surgery H/O: hysterectomy Social History Smoking/Tobacco Use Status: Former Tobacco Use Quit Date: 11/25/99 Smoking risk assessment performed?: Yes Alcohol Intake: current Alcohol Intake frequency: 0-2 drinks per day Alcohol type: beer Drug use: Never Substance use type: does not use Housing: house Do you feel safe at home: Yes Do you feel safe in your relationship?: Yes PAWSS Have you Been Recently Intoxicated or Drunk Within the Last 30 days?: No Have you Ever Experienced Previous Episodes of Alcohol Withdrawal?: No Have you ever Experienced Withdrawal Seizures?: No Have you ever Experienced Delirium Tremens(DT)s?: No Have you ever undergone Alcohol Rehabilitation Treatment (i.e, inpt ot outpatient treatment programs)?: No Have you ever Experienced Blackouts?: No Have you ever Combined Alcohol with other Downers within the last 90 days?: No Have you ever Combined Alcohol with any other Substance of Abuse during the last 90 days?: No Positive Blood Alcohol level on Presentation? [PCS.BAL]: Unable to Obtain Evidence of Increased Autonomic Activity (i.e. HR>120, tremor, sweating, agitation, nausea)?: No Result: 0
[2025-10-09 07:39] LABS: Abs Immature Grans 0.02 10^3/uL (0.0-0.06); HCT 36.6 % (36.0-46.0); HGB 12.3 g/dL (11.2-15.7); Immature Grans % 0.3 %; MCH 30.4 pg (27.0-33.0); MCHC 33.6 % (32.0-36.0); MCV 90 fL (80-95); MPV 10.2 fL (8.0-11.0); Platelet Count 282 10^3/uL (130-400); RBC 4.05 10^6/uL (3.93-5.22); RDW 13.2 % (11.7-14.6); RDW-SD 43.8 fL; WBC 7.04 10^3/uL (4.4-10.8)
[2025-10-09] MEDS: Normal Saline Flush 10 ML SYR IVP ×2 (07:45→21:40)
[2025-10-09] MEDS: Normal Saline - Diluent 50 ML VIAL IJ (07:45)
[2025-10-09] MEDS: Omnipaque 350 MG/ML 100 ML BTL IJ (07:45)
[2025-10-09 07:47] LABS: INR 1.0 (0.9-1.1); PTT Activated 26.0 sec (20.6-30.2); Prothrombin Time 10.4 sec (9.1-11.1)
[2025-10-09 07:49] LABS: Magnesium 2.1 mg/dL (1.6-2.6)
[2025-10-09 07:51] LABS: ALT 21 U/L (10-49); AST 26 U/L (<34); Albumin 4.7 g/dL (3.4-5.0); Alkaline Phosphatase 95 U/L (46-116); Anion Gap 7.3 mmol/L (3-11); BUN 10 mg/dL (9-23); Bilirubin, Total 0.80 mg/dL (0.2-1.2); CO2 27.9 mmol/L (20.0-31.0); Calcium 9.4 mg/dL (8.3-10.6); Chloride 100 mmol/L (98-107); Glucose 119 mg/dL (74-106); Potassium 3.9 mmol/L (3.5-5.1); Sodium 135 mmol/L (136-145); Total Protein 7.7 g/dL (5.7-8.2); Troponin I 6 ng/L (<35)
[2025-10-09 07:54] LABS: TSH (W/Ref FT4) 3.38 uIU/mL (0.55-4.78)
[2025-10-09 07:56] LABS: Glucose Negative (Negative)
[2025-10-09 08:03] LABS: WBC 0-2 HPF (0-5)
[2025-10-09 08:04] LABS: C & S Indicated? No
--- NOTE | 2025-10-09 08:09 | DI.CT_ITS ---
Exam(s) CT BRAIN NECK CTA EXAM: CT BRAIN NECK CTA CLINICAL HISTORY: left face and arm nubmness. TECHNIQUE: Imaging Protocol: Axial CT angiography was performed with multi- slice acquisition and multi-planar and/or 3D reconstructions. CONTRAST MATERIAL: Intravenous: Omnipaque 350 Contrast volume:70 mL COMPARISON: No exams were available for comparison FINDINGS: CTA Neck W: Aortic arch anatomy: There is some calcified plaque at the origin of the great vessels off the aortic arch but there does not appear to be a critical stenosis at this level. No intimal flap evident. Anterior circulation: Both common carotid arteries ascend with normal luminal diameters. At the level the carotid bulbs and proximal internal carotid arteries there is both calcified and noncalcified plaque and extending into the proximal internal carotid arteries. There appears to be less than 50 percent stenosis bilaterally. The internal carotid arteries in the upper neck are patent as well as in the skull base-carotid canals. Posterior circulation: Both vertebral arteries originate in conventional fashion off of the subclavian arteries and there is no obvious stenosis at the origin of the vertebral arteries. Also no dissection Both vertebral arteries exhibit equal/normal luminal diameters within the foramen transversarium. The posterior inferior cerebellar arteries originate off of the vertebral arteries at the skull base. Both vertebral arteries contribute to the formation of the basilar artery at the skull base. CTA Brain W: Anterior circulation: Both internal carotid arteries are patent in the skull base-carotid canals as well as within the cavernous sinuses. The supraclinoid aspects of the ICAs are patent. Both A1 segments are patent as are the anterior cerebral arteries and there is no evidence of aneurysm at the level of the anterior communicating artery. Both middle cerebral arteries are patent with no evidence of significant stenosis nor intraluminal thrombus. There also no aneurysms of these vessels. Posterior circulation: Basilar artery ascends in the midline without significant stenosis. Distally gives off superior cerebellar arteries. Above this level the basilar artery terminates as patent bilateral posterior cerebral arteries. A posterior communicating artery on the right side of the [id number] is noted. There is no evidence of aneurysm at the tip of the basilar artery nor elsewhere in the [id number]. CT BRAIN: There is no evidence of intracranial hemorrhage, mass effect, or shift of midline structures. There are no extra-axial fluid collections. Ventricles are not enlarged or shifted. There are no ring enhancing lesions in the brain and no abnormal meningeal enhancement. IMPRESSION: 1. There is partially calcified plaque at the level both carotid bulbs and proximal ICAs. Amount of stenosis is less than 50 percent bilaterally at these levels. Also no dissection. 2. Patent vertebral arteries. Normal size. No thrombosis. No dissection. 3. Patent intracranial arteries. No thrombosis nor stenosis and no dissection. 4. No acute intracranial findings. No ring enhancing lesions in the brain nor abnormal meningeal enhancement. Preliminary virtual Radiology report was reviewed RADIATION DOSE DELIVERED: 2,150.09mGy.cm Total DLP DATA REPOSITORY: All CT scans at this facility are submitted to the National Radiology Data Registry (NRDR) Dose Index Registry (DIR) with the [employer] (ACR). RADIATION OPTIMIZATION: All CT scans at this facility use at least one of these dose optimization techniques: automated exposure control; mA and/or kV adjustment per patient size (includes targeted exams where dose is matched to clinical indication); or iterative reconstruction.
--- NOTE | 2025-10-09 08:39 | DI.VRAD_ITS ---
PROCEDURE INFORMATION: Exam: CTA Head Without And With Contrast, Arteriography Exam date and time: 10/09/2025 7:57 AM Age: 69 years old Clinical indication: Stroke-like symptoms; Left upper extremity numbness/paresthesia TECHNIQUE: Imaging protocol: Computed tomographic angiography of the head without and with contrast. Exam focused on the arteries. 3D rendering (Not supervised by radiologist): MIP and/or 3D reconstructed images were created by the technologist. Radiation optimization: All CT scans at this facility use at least one of these dose optimization techniques: automated exposure control; mA and/or kV adjustment per patient size (includes targeted exams where dose is matched to clinical indication); or iterative reconstruction. Contrast material: OMNI 350; Contrast volume: 70 ml; Contrast route: INTRAVENOUS (IV); Other technique: STROKE PROTOCOL was implemented. COMPARISON: No relevant prior studies available. FINDINGS: ANTERIOR CIRCULATION: Right internal carotid artery: Intracranial segment is patent with no significant stenosis or occlusion. No aneurysm. Right middle cerebral artery: No occlusion or significant stenosis. No aneurysm. Right anterior cerebral artery: No occlusion or significant stenosis. No aneurysm. Left internal carotid artery: Intracranial segment is patent with no significant stenosis. No aneurysm. Left middle cerebral artery: No occlusion or significant stenosis. No aneurysm. Left anterior cerebral artery: No occlusion or significant stenosis. No aneurysm. POSTERIOR CIRCULATION: Right vertebral artery: No occlusion or significant stenosis. No aneurysm. Left vertebral artery: No occlusion or significant stenosis. No aneurysm. Basilar artery: No occlusion or significant stenosis. No aneurysm. Right posterior cerebral artery: No occlusion or significant stenosis. No aneurysm. Left posterior cerebral artery: No occlusion or significant stenosis. No aneurysm. Other arteries: Intracranial atherosclerotic calcifications. HEAD: Brain: Partially empty sella. No acute large territorial infarct. No intracranial extra-axial collection. No acute intracranial hemorrhage. No midline shift. Prominent bilateral extraventricular subarachnoid spaces. Cerebral ventricles: Normal. No ventriculomegaly. Bones: Unremarkable. No acute fracture. Orbital cavities: Bilateral lens replacements. Paranasal sinuses: Visualized sinuses are normal. No fluid levels. Mastoid air cells: Visualized mastoids are normal. No mastoid effusion. Soft tissues: Unremarkable. IMPRESSION: 1. No large vessel occlusion. 2. Unremarkable CT head. ASSESSMENT: ASPECTS ([place] Stroke Program Early CT Score) is 10. PROCEDURE INFORMATION: Exam: CTA Neck Without And With Contrast Exam date and time: 10/09/2025 7:57 AM Age: 69 years old Clinical indication: Stroke-like symptoms; Left upper extremity numbness/paresthesia TECHNIQUE: Imaging protocol: Computed tomographic angiography of the neck without and with contrast. Exam focused on the cervical segments of the vasculature. 3D rendering (Not supervised by radiologist): MIP and/or 3D reconstructed images were created by the technologist. Radiation optimization: All CT scans at this facility use at least one of these dose optimization techniques: automated exposure control; mA and/or kV adjustment per patient size (includes targeted exams where dose is matched to clinical indication); or iterative reconstruction. Contrast material: OMNI 350; Contrast volume: 70 ml; Contrast route: INTRAVENOUS (IV); COMPARISON: No relevant prior studies available. FINDINGS: Right common carotid artery: No stenosis. No dissection or occlusion. Right internal carotid artery: Plaque within the proximal internal carotid artery with less than 50% stenosis. Right external carotid artery: No occlusion or stenosis of the origin. Left common carotid artery: No stenosis. No dissection or occlusion. Left internal carotid artery: Plaque within the proximal internal carotid artery with less than 50% stenosis. Left external carotid artery: No occlusion or stenosis of the origin. Right vertebral artery: Mild calcific stenosis at the origin. Left vertebral artery: [id number] calcific stenosis of the origin. Other arteries: Scattered atherosclerotic changes in the arterial vasculature. Soft tissues: Normal. No significant soft tissue swelling. Bones/joints: Multilevel disc height loss of the lower cervical spine. Reversal of normal cervical lordosis. Narrowing of the atlanto odontoid joint. Mild anterolisthesis of C2 over C3, C3 over C4, C7 over T1 and T1 over T2. Narrowing the right temporomandibular joint. Esophagus: Scattered air and fluid in the esophagus, possibly from reflux. IMPRESSION: No significant stenosis or occlusion. REFERENCES: NASCET CRITERIA. The degree of stenosis in the cervical segment of the internal carotid artery is based on NASCET criteria. Normal is no stenosis. Mild is less than 50% stenosis. Moderate is 50-69% stenosis. Severe is 70% to 99% stenosis. Total occlusion is no detectable patent lumen. Dictated and Authenticated by: Shameka Bautista MD. Orderin Salma Manning MD
[2025-10-09 08:49] LABS: Troponin I 7 ng/L (<35)
[2025-10-09 09:53] LABS: Cholesterol 153 mg/dL (<200); HDL Cholesterol 61 mg/dL (>40)
[2025-10-09] MEDS: Clopidogrel 300 MG TAB PO (09:53)
[2025-10-09] MEDS: Aspirin 81 MG CHEW 243 MG CH (09:53)
[2025-10-09 10:12] LABS: Hemoglobin A1C 5.9 % (<5.7)
[2025-10-09 10:48] LABS: Troponin I 6 ng/L (<35)
--- NOTE | 2025-10-09 12:54 | W.PC.ACHO ---
Registration Status: ADM LUIS ALFREDO Primary Language: Preferred Language: ED Information & Data Chief Complaint GenMedical 10/09/25 07:08 Triage Note Pt arrives to ED c/o LT 10/09/25 06:53 sided facial numbness and LT FA + hand numbness since 2100 last night. No facial drooping noted. No upper or LE weakness noted. No hx of stroke. Pt denies CP and SOB . Medical / Surgical History (Last Reviewed 05/17/25 @ 13:06 by Octaviano Gutierrez CRNA) Hyperlipidemia Metatarsalgia Raynaud's phenomenon Shingles Family history of alcoholism Spinal stenosis in cervical region Cervical disc displacement (Last Updated 05/18/25 @ 13:08 by Whit Guillaume) History of esophagogastroduodenoscopy (~04/2025) History of colonoscopy (~07/2023) History of incisional hernia repair History of colon resection H/O shoulder surgery H/O: hysterectomy Most Recent Vital Signs Temperature 37 C 10/09/25 07:48 Temperature Source Oral 10/09/25 07:48 Pulse 74 10/09/25 12:25 Pulse 72 10/09/25 12:20 Respiratory Rate 17 10/09/25 12:25 Respiratory Effort Normal, Non-Labored 10/09/25 09:46 Respiratory Depth Normal 10/09/25 09:46 Respiratory Pattern Normal 10/09/25 09:46 Blood Pressure 150/90 H 10/09/25 11:27 Blood Pressure Mean 110 10/09/25 11:27 Blood Pressure Position Sitting 10/09/25 06:53 Pulse Oximetry 96 10/09/25 12:25 Oxygen Delivery Method Room Air 10/09/25 07:48 Oxygen Flow Rate 0 10/09/25 06:53 Pain Level 0 10/09/25 07:48 Allergies penicillin V Allergy (Severe, Verified 10/09/25 06:57) as child As child Precautions Isolation Standard precaution 10/09/25 06:59 Active Medications Generic Name Dose Route Start Last Admin Trade Name Freq PRN Reason Stop Dose Admin Iohexol 100 ml 10/09/25 07:45 10/09/25 07:45 Omnipaque 350 Mg/Ml 100 Ml Btl IJ 11/08/25 23:59 100 ml DIRECTED TAIWO Administration Sodium Chloride 0 ml 10/09/25 08:30 10/09/25 07:45 Normal Saline Flush 10 Ml Syr IVP 10 ml BID TAIWO Administration Sodium Chloride 50 ml 10/09/25 07:45 10/09/25 07:45 Normal Saline - Diluent 50 Ml Vial IJ 50 ml DIRECTED TAIWO Administration Diet Orders Category Date Time Status Heart Healthy Eating [DIET] Nutrition 10/09/25 Lunch Active Diagnostics 10/09/25 10/09/25 10/09/25 Range/Units 10:23 08:27 07:48 WBC (4.4-10.8) 10^3/uL RBC (3.93-5.22) 10^6/uL Hgb (11.2-15.7) g/dL Hct (36.0-46.0) % MCV (80-95) fL MCH (27.0-33.0) pg MCHC (32.0-36.0) % RDW (11.7-14.6) % Plt Count (130-400) 10^3/uL MPV (8.0-11.0) fL Immature Gran % % Neutrophils % % Lymphocytes % % Monocytes % % Eosinophils % % Basophils % % Nucleated RBC % (0.0-0.3) % Absolute Neutrophils (1.2-6.7) 10^3/uL Absolute Lymphocytes (1.2-3.4) 10^3/uL Absolute Monocytes (0.1-0.8) 10^3/uL Absolute Eosinophils (0.0-0.7) 10^3/uL Absolute Basophils (0.0-0.2) 10^3/uL PT (9.1-11.1) sec INR (0.9-1.1) APTT (20.6-30.2) sec Sodium (136-145) mmol/L Potassium (3.5-5.1) mmol/L Chloride (98-107) mmol/L Carbon Dioxide (20.0-31.0) mmol/L Anion Gap (3-11) mmol/L BUN (9-23) mg/dL Creatinine (0.55-1.02) mg/dL Est GFR (CKD-EPI 2020) (mL/min/1.73m2) Glucose (74-106) mg/dL Hemoglobin A1c (<5.7) % Calcium (8.3-10.6) mg/dL Magnesium (1.6-2.6) mg/dL Total Bilirubin (0.2-1.2) mg/dL AST (<34) U/L ALT (10-49) U/L Alkaline Phosphatase (46-116) U/L Troponin I 6 7 (<35) ng/L Total Protein (5.7-8.2) g/dL Albumin (3.4-5.0) g/dL Triglycerides (<150) mg/dL Total Cholesterol (<200) mg/dL LDL Cholesterol, Calc (<100) mg/dL HDL Cholesterol (>40) mg/dL TSH (0.55-4.78) uIU/mL Urine Color Yellow (Yellow) Urine Clarity Sl Cloudy (Clear) Urine pH 7.0 (5-8) Ur Specific [place] 1.015 (1.005-1.025) Urine Protein Negative (Neg-Trace) mg/dL Urine Ketones Negative (Negative) mg/dL Urine Blood Trace-intact H (Negative) Urine Nitrite Negative (Negative) Urine Bilirubin Negative (Negative) Urine Urobilinogen 0.2 (Up to 0.2) mg/dL Ur Leukocyte Esterase Negative (Negative) Urine RBC 3-5 H (0-2) HPF Urine WBC 0-2 (0-5) HPF Ur Epithelial Cells Rare (Negative) HPF Urine Crystals Negative (Negative) HPF Urine Bacteria Few (Negative) HPF Urine Casts Negative (Negative) LPF Urine Mucus Trace (Negative) Ur Culture Indicated? No Urine Glucose Negative (Negative) mg/dL 10/09/25 Range/Units 07:23 WBC 7.04 (4.4-10.8) 10^3/uL RBC 4.05 (3.93-5.22) 10^6/uL Hgb 12.3 (11.2-15.7) g/dL Hct 36.6 (36.0-46.0) % MCV 90 (80-95) fL MCH 30.4 (27.0-33.0) pg MCHC 33.6 (32.0-36.0) % RDW 13.2 (11.7-14.6) % Plt Count 282 (130-400) 10^3/uL MPV 10.2 (8.0-11.0) fL Immature Gran % 0.3 % Neutrophils % 69.5 % Lymphocytes % 18.8 % Monocytes % 8.5 % Eosinophils % 2.0 % Basophils % 0.9 % Nucleated RBC % 0.0 (0.0-0.3) % Absolute Neutrophils 4.90 (1.2-6.7) 10^3/uL Absolute Lymphocytes 1.32 (1.2-3.4) 10^3/uL Absolute Monocytes 0.60 (0.1-0.8) 10^3/uL Absolute Eosinophils 0.14 (0.0-0.7) 10^3/uL Absolute Basophils 0.06 (0.0-0.2) 10^3/uL PT 10.4 (9.1-11.1) sec INR 1.0 (0.9-1.1) APTT 26.0 (20.6-30.2) sec Sodium 135 L (136-145) mmol/L Potassium 3.9 (3.5-5.1) mmol/L Chloride 100 (98-107) mmol/L Carbon Dioxide 27.9 (20.0-31.0) mmol/L Anion Gap 7.3 (3-11) mmol/L BUN 10 (9-23) mg/dL Creatinine 0.6 (0.55-1.02) mg/dL Est GFR (CKD-EPI 2020) 94.63 (mL/min/1.73m2) Glucose 119 H (74-106) mg/dL Hemoglobin A1c 5.9 H (<5.7) % Calcium 9.4 (8.3-10.6) mg/dL Magnesium 2.1 (1.6-2.6) mg/dL Total Bilirubin 0.80 (0.2-1.2) mg/dL AST 26 (<34) U/L ALT 21 (10-49) U/L Alkaline Phosphatase 95 (46-116) U/L Troponin I 6 (<35) ng/L Total Protein 7.7 (5.7-8.2) g/dL Albumin 4.7 (3.4-5.0) g/dL Triglycerides 38 (<150) mg/dL Total Cholesterol 153 (<200) mg/dL LDL Cholesterol, Calc 84.3 (<100) mg/dL HDL Cholesterol 61 (>40) mg/dL TSH 3.38 (0.55-4.78) uIU/mL Urine Color (Yellow) Urine Clarity (Clear) Urine pH (5-8) Ur Specific [place] (1.005-1.025) Urine Protein (Neg-Trace) mg/dL Urine Ketones (Negative) mg/dL Urine Blood (Negative) Urine Nitrite (Negative) Urine Bilirubin (Negative) Urine Urobilinogen (Up to 0.2) mg/dL Ur Leukocyte Esterase (Negative) Urine RBC (0-2) HPF Urine WBC (0-5) HPF Ur Epithelial Cells (Negative) HPF Urine Crystals (Negative) HPF Urine Bacteria (Negative) HPF Urine Casts (Negative) LPF Urine Mucus (Negative) Ur Culture Indicated? Urine Glucose (Negative) mg/dL Intake and Output - 24 Hour Total 10/09/25 06:47 thru 10/09/25 10:10 Weight 65.317 kg Other: Urine Color Yellow Urine Appearance Clear Urine Odor None Comment per pt report Falls Risk Assessment History of Falls No History 10/09/25 07:48 Contributing Factors Impairments 10/09/25 07:48 Ambulatory Aids Independent 10/09/25 07:48 Tubes/Lines W/no contributing factors 10/09/25 07:48 Gait Evaluation No gait disturbance 10/09/25 07:48 Cognition No cognitive impairment 10/09/25 07:48 Fall Total Score 13 10/09/25 07:48 Level of Risk Standard/Low Risk 10/09/25 07:48 Attestation Statement: By documenting the first initial, last name, and credentials of the reporting nurse below, both parties acknowledge that all relevant information regarding the patient handoff has been communicated, and that all questions have been addressed to ensure continuity and safety of care. Additional Patient Information/Comments: Report received from ED nurse. Pt admitting to floor for ? CVA. Needing an MRI and echo. Aware this will not be done until Saturday. Telemetry monitoring needed. 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 Report Received From: [facility]
--- NOTE | 2025-10-09 14:02 | W.PM.HP.N ---
Date of service: 10/09/25 Time of Service: 09:00 Assessment and Plan Assessment and plan (1) Left arm numbness: Status: Acute Assessment and plan: Teleneuro consult - likely small thalamic CVA; aspirin and Plavix loaded. Admit for telemetry, MRI and echo Saturday. Monitor neurological status; report any worsening immediately. Aspirin, plavix, atorvastatin PT consult (2) Carotid artery stenosis: Status: Chronic Assessment and plan: This was noted in pmhx CT: Left internal carotid artery: Intracranial segment is patent with no significant stenosis. No aneurysm. Right internal carotid artery: Intracranial segment is patent with no significant stenosis or occlusion. No aneurysm. (3) Essential hypertension: Status: Acute Assessment and plan: Severely elevated on arrival; start home antihypertensives, Losartan 100 mg daily tomorrow 10/10.; monitor. 24h permissive hypertension 220/120 BP in ED on arrival 229/94; on admission 160/70 without intervention. (4) Pure hypercholesterolemia: Status: Acute Assessment and plan: Today: LDL 84.3 tot chol 153 HDL 61 (5) Depression: Status: Chronic Assessment and plan: Stable Continue Lexapro (6) PVD (peripheral vascular disease): Status: Chronic (7) Hypothyroid: Status: Chronic Assessment and plan: Continue levothyroxine 100 mcg daily TSH 3.38 (8) DVT prophylaxis: Status: Acute Assessment and plan: Enoxaparin 40 mg sc daily (9) Discharge planning issues: Status: Acute Assessment and plan: Anticipate home on Saturday after MRI and echo without services. History of Present Illness Narrative: 69-year-old female with a history of hypertension and former smoker presents with acute onset left-sided facial and arm numbness that began around 9:00 PM last night. Symptoms are constant and moderate, without relieving or worsening factors. She denies weakness, vision changes, speech difficulty, chest pain, shortness of breath, or falls. Patient is ambulatory, alert, and oriented ×4 on arrival. No prior similar episodes reported. Home medications include aspirin, atorvastatin, losartan, levothyroxine, escitalopram, furosemide, omeprazole, coenzyme Q10, vitamin D, fluticasone, and fexofenadine. Allergic to penicillin V (severe, childhood). Past Medical History: Hyperlipidemia, Raynaud’s, spinal stenosis, shingles, cervical disc disease, metatarsalgia. Past Surgical History: EGD with dilation, colonoscopy, colon resection, hernia repair, shoulder surgery, hysterectomy. Social History: Former smoker (quit 1999), alcohol 0–2 drinks/day, lives at home, feels safe. In ED: CTA/CT negative. Teleneurology consulted: likely small thalamic CVA. Loaded with aspirin 243 mg (already took 81 mg) and Plavix 300 mg, Labs obtained. ECG: sinus rhythm 67 bpm, no STEMI. Differential: CVA, TIA, electrolyte abnormality. Admit for telemetry monitoring, MRI and echocardiogram scheduled for Saturday. Patient agrees with plan of care. Patient is a full code. Review of Systems Narrative: Constitutional: denies fever, chills, weakness Cardiovascular: denies chest pain, dyspnea Respiratory: denies cough, dyspnea GI: denies abdominal pain, nausea, vomiting Musculoskeletal: reports numbness Neurologic: reports numbness, denies weakness All other systems unremarkable PFSH All Active Problems (Updated 10/09/25 @ 14:18 by Chelsea Vallejo NP) Discharge planning issues (Acute) DVT prophylaxis (Acute) Left arm numbness (Acute) Schatzki ring of distal esophagus (Acute) Dysphagia (Acute) Systolic murmur (Acute ~10/2023) Disorder of left atrium (Acute ~11/2023) Right lower quadrant pain (Acute) Tubulovillous adenoma of colon (Acute) GERD (gastroesophageal reflux disease) (Chronic) Pure hypercholesterolemia (Acute) Essential hypertension (Acute) Abnormal glucose (Acute) Diverticulosis of both small and large intestine without perforation or abscess without bleeding (Acute) Depression (Chronic) PVD (peripheral vascular disease) (Chronic) Carotid artery stenosis (Chronic) Cardiomegaly (Acute) Rosacea (Acute) Hypothyroid (Chronic) Medical History (Updated 10/09/25 @ 14:18 by Chelsea Vallejo NP) Hyperlipidemia Metatarsalgia Raynaud's phenomenon Shingles 2020 Family history of alcoholism Spinal stenosis in cervical region Cervical disc displacement Surgical History (Updated 05/18/25 @ 13:08 by Whit Guillaume) History of esophagogastroduodenoscopy (~04/2025) with dilation History of colonoscopy (~07/2023) History of incisional hernia repair History of colon resection 2011 H/O shoulder surgery H/O: hysterectomy Social History (Reviewed 05/13/25 @ 08:33 by DAVID Shepard Smoking/Tobacco Use Status: Former Tobacco Use Quit Date: 11/25/99 Smoking risk assessment performed?: Yes Alcohol Intake: current Alcohol Intake frequency: 0-2 drinks per day Alcohol type: beer Drug use: Never Substance use type: does not use Housing: house Do you feel safe at home: Yes Do you feel safe in your relationship?: Yes Meds Allergies and Home Medications Allergies Allergy/AdvReac Type Severity Reaction Status Date / Time penicillin V Allergy Severe as child Verified 10/09/25 06:57 Home Medications Medication Instructions Recorded Confirmed Type aspirin 81 mg tablet,delayed 81 mg PO DAILY 12/24/22 10/09/25 History release (Adult Aspirin Regimen) atorvastatin 10 mg tablet 10 mg PO QHS 12/24/22 10/09/25 History coenzyme Q10 10 mg capsule (Co 10 mg PO DAILY 12/24/22 10/09/25 History Q-10) escitalopram oxalate 5 mg tablet 5 mg PO DAILY 12/24/22 10/09/25 History fexofenadine 180 mg tablet 180 mg PO DAILY PRN 12/24/22 10/09/25 History (Brina Allergy) levothyroxine 100 mcg capsule 100 mcg PO DAILY 12/24/22 10/09/25 History losartan 100 mg tablet 100 mg PO DAILY 12/24/22 10/09/25 History fluticasone propionate 50 1 spray intranasal DAILY PRN 07/11/23 10/09/25 History mcg/actuation nasal spray,suspension (Allergy Relief (fluticasone)) furosemide 20 mg tablet 20 mg PO QAM 10/21/24 10/09/25 History omeprazole 20 mg capsule,delayed 20 mg PO DAILY 10/21/24 10/09/25 History release cholecalciferol (vitamin D3) 10 10 mcg PO DAILY 05/07/25 10/09/25 History mcg (400 unit) capsule Exam Narrative Exam Narrative: General: no acute distress, alert ×3 HENT: head normal, ears and nose normal, oral mucosa moist Eyes: normal Neck: normal Resp: normal effort, speaking in full sentences Cardio: regular rate, no murmurs, no JVD Skin: no rashes or lesions Neuro: cranial nerves II–XII intact, motor 5/5, no pronator drift, normal speech and cognition Extremities: normal Psych: grossly normal mental status Results Labs 10/09/25 07:23 10/09/25 07:23 Labs: Laboratory Results - last 24 hr 10/09/25 10/09/25 10/09/25 07:23 07:48 08:27 WBC 7.04 RBC 4.05 Hgb 12.3 Hct 36.6 MCV 90 MCH 30.4 MCHC 33.6 RDW 13.2 Plt Count 282 MPV 10.2 Immature Gran % 0.3 Neutrophils % 69.5 Lymphocytes % 18.8 Monocytes % 8.5 Eosinophils % 2.0 Basophils % 0.9 Nucleated RBC % 0.0 Absolute Neutrophils 4.90 Absolute Lymphocytes 1.32 Absolute Monocytes 0.60 Absolute Eosinophils 0.14 Absolute Basophils 0.06 PT 10.4 INR 1.0 APTT 26.0 Sodium 135 L Potassium 3.9 Chloride 100 Carbon Dioxide 27.9 Anion Gap 7.3 BUN 10 Creatinine 0.6 Est GFR (CKD-EPI 2020) 94.63 Glucose 119 H Hemoglobin A1c 5.9 H Calcium 9.4 Magnesium 2.1 Total Bilirubin 0.80 AST 26 ALT 21 Alkaline Phosphatase 95 Troponin I 6 7 Total Protein 7.7 Albumin 4.7 Triglycerides 38 Total Cholesterol 153 LDL Cholesterol, Calc 84.3 HDL Cholesterol 61 TSH 3.38 Urine Color Yellow Urine Clarity Sl Cloudy Urine pH 7.0 Ur Specific Henderson 1.015 Urine Protein Negative Urine Ketones Negative Urine Blood Trace-intact H Urine Nitrite Negative Urine Bilirubin Negative Urine Urobilinogen 0.2 Ur Leukocyte Esterase Negative Urine RBC 3-5 H Urine WBC 0-2 Ur Epithelial Cells Rare Urine Crystals Negative Urine Bacteria Few Urine Casts Negative Urine Mucus Trace Ur Culture Indicated? No Urine Glucose Negative 10/09/25 10:23 WBC RBC Hgb Hct MCV MCH MCHC RDW Plt Count MPV Immature Gran % Neutrophils % Lymphocytes % Monocytes % Eosinophils % Basophils % Nucleated RBC % Absolute Neutrophils Absolute Lymphocytes Absolute Monocytes Absolute Eosinophils Absolute Basophils PT INR APTT Sodium Potassium Chloride Carbon Dioxide Anion Gap BUN Creatinine Est GFR (CKD-EPI 2020) Glucose Hemoglobin A1c Calcium Magnesium Total Bilirubin AST ALT Alkaline Phosphatase Troponin I 6 Total Protein Albumin Triglycerides Total Cholesterol LDL Cholesterol, Calc HDL Cholesterol TSH Urine Color Urine Clarity Urine pH Ur Specific Henderson Urine Protein Urine Ketones Urine Blood Urine Nitrite Urine Bilirubin Urine Urobilinogen Ur Leukocyte Esterase Urine RBC Urine WBC Ur Epithelial Cells Urine Crystals Urine Bacteria Urine Casts Urine Mucus Ur Culture Indicated? Urine Glucose Last Vital Signs Temp 36.6 C 10/09/25 13:26 Pulse 68 10/09/25 13:26 Resp 16 10/09/25 13:26 BP 160/70 H 10/09/25 13:26 Pulse Ox 100 10/09/25 13:26 PAWSS Have you Been Recently Intoxicated or Drunk Within the Last 30 days?: No Have you Ever Experienced Previous Episodes of Alcohol Withdrawal?: No Have you ever Experienced Withdrawal Seizures?: No Have you ever Experienced Delirium Tremens(DT)s?: No Have you ever undergone Alcohol Rehabilitation Treatment (i.e, inpt ot outpatient treatment programs)?: No Have you ever Experienced Blackouts?: No Have you ever Combined Alcohol with other Downers within the last 90 days?: No Have you ever Combined Alcohol with any other Substance of Abuse during the last 90 days?: No Positive Blood Alcohol level on Presentation? [PCS.BAL]: Unable to Obtain Evidence of Increased Autonomic Activity (i.e. HR>120, tremor, sweating, agitation, nausea)?: No Result: 0 Time Spent Time spent with Patient: 40-54 minutes Time was spent: preparing to see the patient(eg.review tests), obtaining and/or reviewing separately otained hiistory, ordering medications,tests, procedures, referring, communicating with other health senior care assistant, indepentently interpreting results, counseling the patient and care coordination
[2025-10-09] MEDS: Atorvastatin 40 MG TAB 80 MG PO (21:39)
[2025-10-10 01:59] VITALS: BP 139/54; PULSE 61; TEMP 36.3; O2SAT 98
[2025-10-10] MEDS: Levothyroxine 100 MCG TAB PO (05:07)
[2025-10-10 06:30] LABS: Abs Immature Grans 0.02 10^3/uL (0.0-0.06); HCT 34.7 % (36.0-46.0); HGB 11.7 g/dL (11.2-15.7); Immature Grans % 0.3 %; MCH 30.1 pg (27.0-33.0); MCHC 33.7 % (32.0-36.0); MCV 89 fL (80-95); MPV 10.4 fL (8.0-11.0); Platelet Count 285 10^3/uL (130-400); RBC 3.89 10^6/uL (3.93-5.22); RDW 13.3 % (11.7-14.6); RDW-SD 43.6 fL; WBC 6.69 10^3/uL (4.4-10.8)
[2025-10-10 07:00] LABS: Magnesium 2.0 mg/dL (1.6-2.6)
[2025-10-10 07:01] LABS: Anion Gap 8.5 mmol/L (3-11); BUN 11 mg/dL (9-23); CO2 27.6 mmol/L (20.0-31.0); Calcium 9.2 mg/dL (8.3-10.6); Chloride 97 mmol/L (98-107); Glucose 104 mg/dL (74-106); Potassium 3.5 mmol/L (3.5-5.1); Sodium 133 mmol/L (136-145)
[2025-10-10 07:18] VITALS: BP 126/75; PULSE 62; RESP 16; TEMP 36.6; O2SAT 99
--- NOTE | 2025-10-10 07:48 | IN_ITS ---
Date of service: 10/10/25 Time of Service: 07:10 PT Notes Visit Reasons: Numbness Left side face and arm, tingling Inpatient Physical Therapy Evaluation Date: October 10, 2025 Referring Doctor: Chelsea Vallejo PT Orders: PT CONSULT Precautions: Standard Patient Profile/Admitting Diagnosis: Lilly is a 69-year-old female with a history of hypertension and former smoker presents with acute onset left-sided facial and arm numbness that began around 9:00 PM Saturday night. Presented to the ED Saturday morning. Symptoms are constant and moderate, without relieving or worsening factors. She denies weakness, vision changes, speech difficulty, chest pain, shortness of breath, or falls. PMHX: (Updated 10/09/25 @ 14:18 by Chelsea Vallejo NP) Discharge planning issues (Acute) DVT prophylaxis (Acute) Left arm numbness (Acute) Schatzki ring of distal esophagus (Acute) Dysphagia (Acute) Systolic murmur (Acute ~10/2023) Disorder of left atrium (Acute ~11/2023) Right lower quadrant pain (Acute) Tubulovillous adenoma of colon (Acute) GERD (gastroesophageal reflux disease) (Chronic) Pure hypercholesterolemia (Acute) Essential hypertension (Acute) Abnormal glucose (Acute) Diverticulosis of both small and large intestine without perforation or abscess without bleeding (Acute) Depression (Chronic) PVD (peripheral vascular disease) (Chronic) Carotid artery stenosis (Chronic) Cardiomegaly (Acute) Rosacea (Acute) Hypothyroid (Chronic) Medical History (Updated 10/09/25 @ 14:18 by Chelsea Vallejo NP) Hyperlipidemia Metatarsalgia Raynaud's phenomenon Shingles 2020Family history of alcoholism Spinal stenosis in cervical region Cervical disc displacement Surgical History (Updated 05/18/25 @ 13:08 by Whit Guillaume) History of esophagogastroduodenoscopy (~04/2025) with dilationHistory of colonoscopy (~07/2023) History of incisional hernia repair History of colon resection 2011H/O shoulder surgery H/O: hysterectomy Social History/Home Situation: Lives alone in a private home. Remains active. Completing all household related chores independently. No use of assistive device. Independent driving Current Functional Limitations: Tingling left side face and left upper extremity. No restrictions in functional activities Subjective: Lilly notes she continues to experience prickly sensation into the left side of her face and left arm. Declines any weakness. Has been out moving about her room without difficulty. Agreeable to PT consult this morning Objective: General Observation: Telemetry, IV access right upper extremity Mental Status: Alert and oriented x 4, pleasant Pain: Declines any pain Vital Signs: Heart rate at rest 70 bpm, O2 saturation room air 98% ROM: Right Upper Extremity: Right shoulder forward elevation limited to 90 degrees with assistance able to elevate to 150 degrees, abduction limited to 90 degrees again with assistance able to elevate to 150 degrees, internal rotation functional reach to T10, external rotation 45 degrees at side. Demonstrates full elbow forearm and wrist mobility Left Upper Extremity: Demonstrates full and pain-free left upper extremity range of motion Right Lower Extremity: Demonstrates full and pain-free right lower extremity range of motion Left Lower Extremity: Demonstrates full and pain-free left lower extremity range of motion Strength: Right Upper Extremity: Right shoulder limited strength flexion abduction external rotation 3/5 due to previous injury with progressive degeneration of the right shoulder.Good functional grasp. Left Upper Extremity: Left upper extremity 5/5 Right Lower Extremity: Right lower extremity 5/5 Left Lower Extremity: Left lower extremity 5/5 Sensation: Altered sensation left sided face and left upper extremity remains tingling and numb. Bed Mobility/Transfers: Supine to sit independent Sit to supine independent Sit to stand independent Stand to sit independent Bed to chair independent Chair to bed independent Gait: Ambulates 300 feet without assistive device no gait deviations good vani good stride length Balance: Static Sitting: Normal Dynamic Sitting: Normal Static Standing: Good Dynamic Standing: Fair 4 stage balance assessment feet together 10 seconds, foot and instep of other foot 10 seconds, tandem stance hand-held assistance to assume position 10 seconds, unilateral stance 3 to 4 seconds bilaterally Special Tests: Mobility Limitations Standardized Measure [facility] AM-PAC 6 clicks Basic Mobility Inpatient Short Form: Raw Score: 24 CMS Score: 0% Informed Consent/Education: Patient instructed in purpose of PT consult and plan of care. Assessment: Patient is a 69 year old female with referred to physical therapy services with the diagnosis of possible TIA with left-sided facial numbness and left upper extremity numbness. Patient presents with clinical signs and symptoms consistent with diagnosis. Patient demonstrates baseline level of mobility and function. Demonstrates weakness and limited right shoulder mobility due to rotator cuff dysfunction/OA. Safe and independent with all transfers. Safe and independent with all ambulation. Continued paresthesias into the left side of face and upper extremity. Awaiting further diagnostics MRI Patient is [place] as a Low 34680 complexity based on the following: History: As above Examination: As above Presentation: Stable Decision Making: Low complexity Plan of Care/Treatment Plan: Lilly seen for initial evaluation today. Is at baseline level of function. Does not require further PT services at this time. Awaiting MRI and to be discharged once medically cleared. DISCHARGE RECOMMENDATIONS: Home with no services TREATMENT CODE/TIME: 79155, IE 7:10-7:40 am 30 minutes Vani Sykes [facility] Disclaimer: This note was created using [employer] voice recognition software. It was reviewed for major content. However, there may be multiple small discrepancies and errors due to the voice recognition aspects of the software.
[2025-10-10] MEDS: Enoxaparin 40 MG/0.4 ML SYR SC (07:56)
[2025-10-10] MEDS: Normal Saline Flush 10 ML SYR IVP ×2 (07:56→20:07)
[2025-10-10] MEDS: Furosemide 20 MG TAB PO (07:58)
[2025-10-10] MEDS: Losartan 50 MG TAB 100 MG PO (07:58)
[2025-10-10] MEDS: Pantoprazole 40 MG TABCR PO (07:58)
[2025-10-10] MEDS: Cholecalciferol (Vitamin D3) 400 UNIT TAB PO (07:58)
[2025-10-10] MEDS: Aspirin E.C. 81 MG TABEC PO (07:58)
[2025-10-10] MEDS: Escitalopram 10 MG TAB 5 MG PO (07:59)
[2025-10-10] MEDS: COENZYME Q10 10 MG 1 EACH PO (08:48)
[2025-10-10] MEDS: Clopidogrel 75 MG TAB PO (08:48)
--- NOTE | 2025-10-10 10:26 | PDOC.CMIN ---
Date of service: 10/10/25 Time of Service: 10:26 Care Management Initial Assmt Initial Assessment Reason for Hospitalization: numbness left side Functional Status/Living Situation Patient Presentation: Xochitl was sitting up in bed when CM met with her. Her family had just left after visiting for a while. She was pleasant and engaged well in conversation. She reported that she lives in [place], alone, but her son, Claude, lives next door. She is very independent, still drives and keeps herself busy with volunteering, reading and sewing. She stated that she likes to live alone, as she enjoys her quiet time, and she knows that her family will support her with any needs, if they arise. 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 She stated that per provider, she will have an MRI and echo tomorrow. She is hopeful to be able to discharge soon after. She stated that she still feels some numbness/tingling on her face, but it has greatly improved. She reported that her son or daughter in law will be able to drive her home when she is ready for discharge. CM will continue to follow. Town of Residence: [place] Resides with: Alone Significant Other/Family: Local Natural Supports: son, Claude very supportive family Employment Status: Retired Instrumental Activities of Daily Living (ADLs): Independent Activities/Hobbies/SocialSupport: Sewing, reading, volunteering Medications Medication Management: No Issues/Barriers identified Physical Functioning/Mobility Assistive Device: none Advance Directives Advance Directives: Do you have an Advance Directive: N 12/01/24, 10:40 AD On File at [facility]: N 12/01/24, 10:40 Date Asked 05/17/25 05/14/25, 07:18 AD Date Reviewed COLST On File at [facility] COLST Date Scanned Code Status Resuscitation Status Full Code Insurance Coverage/Financial Issues Insurance: [employer] MCR replacement Care Team Visit Care Team Role Provider Type Chelsea Vallejo NP MD [facility] STAFF PHYSICIAN Dayanna Michaels Primary Care Provider NURSE PRACTITIONER InPatient [facility] Other Providers OTHER Nigel Marsh MD Emergency Provider [facility] STAFF PHYSICIAN Yahir Dunbar Admit Provider [facility] STAFF PHYSICIAN Attending Provider Discharge Potential Discharge Needs: PCP F/U Appt Anticipated Barriers to Discharge: None Identified Patient/Family Education Needs: Review discharge instructions, discuss Ask Me Three Transportation: Private vehicle Plan: Anticipate Lilly will return home once medically cleared. She will transport home via private vehicle by family. She will follow up with her PCP and discharge plan of care. CM will continue to follow. Social Determinants of Health Screening Social Determinants of health last assessed in clinic: 10/10/25 Will the Patient Participate in the Screening?: Yes Do you worry about having a steady place to live?: no Problems where you live: no known problems In the past 12 months, have you had to go without electric, gas, oil or water in your home?: no 1. Within the past 12 months, we worried whether our food would run out before we got money to buy more.: Never true 2. Within the past 12 months, the food we bought just didn't last and we didn't have money to get more.: Never true Has lack of transportation kept you from medical appointments or from doing things needed for daily living?: no Has anyone in your life made you feel unsafe or unsupported?: no How hard is it for you to pay for the very basics like food, housing, medical care, and heating? Would you say it is:: Not hard at all Do you want help finding or keeping work or a job?: I do not need or want help If for any reason you need help with day-to-day activities such as bathing, preparing meals, shopping, managing finances, etc., do you get the help you need?: I don’t need any help How often do you feel lonely or isolated from those around you?: Never Do you speak a language other than Ethiopian at home?: No Does the patient want assistance with any of the above?: No PFSH All Active Problems (Updated 10/09/25 @ 14:18 by Chelsea Vallejo NP) Discharge planning issues (Acute) DVT prophylaxis (Acute) Left arm numbness (Acute) Schatzki ring of distal esophagus (Acute) Dysphagia (Acute) Systolic murmur (Acute ~10/2023) Disorder of left atrium (Acute ~11/2023) Right lower quadrant pain (Acute) Tubulovillous adenoma of colon (Acute) GERD (gastroesophageal reflux disease) (Chronic) Pure hypercholesterolemia (Acute) Essential hypertension (Acute) Abnormal glucose (Acute) Diverticulosis of both small and large intestine without perforation or abscess without bleeding (Acute) Depression (Chronic) PVD (peripheral vascular disease) (Chronic) Carotid artery stenosis (Chronic) Cardiomegaly (Acute) Rosacea (Acute) Hypothyroid (Chronic) Medical History (Updated 10/09/25 @ 14:18 by Chelsea Vallejo NP) Hyperlipidemia Metatarsalgia Raynaud's phenomenon Shingles 2020 Family history of alcoholism Spinal stenosis in cervical region Cervical disc displacement Surgical History (Updated 05/18/25 @ 13:08 by Whit Guillaume) History of esophagogastroduodenoscopy (~04/2025) with dilation History of colonoscopy (~07/2023) History of incisional hernia repair History of colon resection 2011 H/O shoulder surgery H/O: hysterectomy Social History Smoking/Tobacco Use Status: Former Tobacco Use Quit Date: 11/25/99 Smoking risk assessment performed?: Yes Alcohol Intake: current Alcohol Intake frequency: 0-2 drinks per day Alcohol type: beer Drug use: Never Substance use type: does not use Housing: house Do you feel safe at home: Yes Do you feel safe in your relationship?: Yes
[2025-10-10 10:56] VITALS: BP 114/55; PULSE 69; RESP 16; TEMP 36.8; O2SAT 99
[2025-10-10 14:32] VITALS: BP 149/57; PULSE 72; RESP 16; TEMP 36.6; O2SAT 97
--- NOTE | 2025-10-10 14:37 | PGE_ITS ---
Date of Service Date of service: 10/10/25 Time of Service: 14:37 Assessment and Plan Assessment and plan (1) Left arm numbness: Status: Acute Assessment and plan: Teleneuro consult - likely small thalamic CVA; aspirin and Plavix loaded. Admit for telemetry, MRI and echo Saturday. Monitor neurological status; report any worsening immediately. No change in symptoms Aspirin, plavix, atorvastatin PT consult: s at baseline level of function. Does not require further PT services at this time. (2) Carotid artery stenosis: Status: Chronic Assessment and plan: This was noted in pmhx CT: Left internal carotid artery: Intracranial segment is patent with no significant stenosis. No aneurysm. Right internal carotid artery: Intracranial segment is patent with no significant stenosis or occlusion. No aneurysm. (3) Essential hypertension: Status: Acute Assessment and plan: SBP today 149-57 Losartin was resumed (4) Pure hypercholesterolemia: Status: Acute Assessment and plan: 10/09 LDL 84.3 tot chol 153 HDL 61 (5) Depression: Status: Chronic Assessment and plan: Stable Continue Lexapro (6) PVD (peripheral vascular disease): Status: Chronic (7) Hypothyroid: Status: Chronic Assessment and plan: Continue levothyroxine 100 mcg daily TSH 3.38 (8) DVT prophylaxis: Status: Acute Assessment and plan: Enoxaparin 40 mg sc daily (9) Discharge planning issues: Status: Acute Assessment and plan: Anticipate home on Saturday after MRI and echo without services. Subjective Subjective Patient reports: no new complaints, tolerating liquids well, tolerating a regular diet, voiding w/o difficulty, flatus, bowel movement and afebrile; denies diarrhea or vomiting Interval history since last seen: Patient states she still has numbness to her left face and left lower arm. No new symptoms, no headaches. Patient states when she puts eye drops in her left eye she can't feel the drop hit but knows it went in because her eye is no longer dry (she uses eye drops regularly to both eyes). Exam Narrative Exam Narrative: General: no acute distress, alert ×3 HENT: head normal, ears and nose normal, oral mucosa moist; left face numb, slight drooping of left eye lid noted. Eyes: normal Neck: normal Resp: normal effort, speaking in full sentences Cardio: regular rate, no murmurs, no JVD Skin: no rashes or lesions Neuro: cranial nerves II–XII intact, motor 5/5, no pronator drift, normal speech and cognition; left lower arm is numb Extremities: normal Psych: grossly normal mental status Objective Last Vital Signs Temp 36.6 C 10/10/25 14:32 Pulse 72 10/10/25 14:32 Resp 16 10/10/25 14:32 BP 149/57 H 10/10/25 14:32 Pulse Ox 97 10/10/25 14:32 Laboratory Results - last 24 hr 10/10/25 05:25 WBC 6.69 RBC 3.89 L Hgb 11.7 Hct 34.7 L MCV 89 MCH 30.1 MCHC 33.7 RDW 13.3 Plt Count 285 MPV 10.4 Immature Gran % 0.3 Neutrophils % 48.5 Lymphocytes % 32.3 Monocytes % 12.3 Eosinophils % 6.0 Basophils % 0.6 Nucleated RBC % 0.0 Absolute Neutrophils 3.25 Absolute Lymphocytes 2.16 Absolute Monocytes 0.82 H Absolute Eosinophils 0.40 Absolute Basophils 0.04 Sodium 133 L Potassium 3.5 Chloride 97 L Carbon Dioxide 27.6 Anion Gap 8.5 BUN 11 Creatinine 0.6 Est GFR (CKD-EPI 2020) 92.90 Glucose 104 Calcium 9.2 Magnesium 2.0 PAWSS Have you Been Recently Intoxicated or Drunk Within the Last 30 days?: No Have you Ever Experienced Previous Episodes of Alcohol Withdrawal?: No Have you ever Experienced Withdrawal Seizures?: No Have you ever Experienced Delirium Tremens(DT)s?: No Have you ever undergone Alcohol Rehabilitation Treatment (i.e, inpt ot outpati ent treatment programs)?: No Have you ever Experienced Blackouts?: No Have you ever Combined Alcohol with other Downers within the last 90 days?: No Have you ever Combined Alcohol with any other Substance of Abuse during the last 90 days?: No Positive Blood Alcohol level on Presentation? [PCS.BAL]: Unable to Obtain Evidence of Increased Autonomic Activity (i.e. HR>120, tremor, sweating, agitation, nausea)?: No Result: 0 Time Spent with Patient Time Spent with Patient: 35-49 minutes Time was spent: preparing to see the patient(eg.review tests), ordering medications,tests, procedures, referring, communicating with other health career development manager, indepentently interpreting results, counseling the patient and care coordination
[2025-10-10] MEDS: Atorvastatin 40 MG TAB 80 MG PO (20:07)
[2025-10-10 20:08] VITALS: BP 117/60; PULSE 64; RESP 16; TEMP 36.4; O2SAT 96
[2025-10-10 23:30] VITALS: BP 135/65; PULSE 64; RESP 16; TEMP 36.4; O2SAT 94
[2025-10-11 05:52] VITALS: BP 147/57; PULSE 60; RESP 16; TEMP 36.4; O2SAT 97
[2025-10-11] MEDS: Pantoprazole 40 MG TABCR PO (05:54)
[2025-10-11] MEDS: Levothyroxine 100 MCG TAB PO (05:54)
[2025-10-11 07:00] LABS: Anion Gap 8.3 mmol/L (3-11); BUN 11 mg/dL (9-23); CO2 28.1 mmol/L (20.0-31.0); Calcium 9.0 mg/dL (8.3-10.6); Chloride 99 mmol/L (98-107); Glucose 105 mg/dL (74-106); Magnesium 2.0 mg/dL (1.6-2.6); Potassium 3.8 mmol/L (3.5-5.1); Sodium 135 mmol/L (136-145)
[2025-10-11 07:30] VITALS: BP 144/59; PULSE 62; RESP 17; TEMP 36.7; O2SAT 97
[2025-10-11 07:39] LABS: Abs Immature Grans 0.03 10^3/uL (0.0-0.06); HCT 35.4 % (36.0-46.0); HGB 12.0 g/dL (11.2-15.7); Immature Grans % 0.5 %; MCH 30.6 pg (27.0-33.0); MCHC 33.9 % (32.0-36.0); MCV 90 fL (80-95); MPV 10.2 fL (8.0-11.0); Platelet Count 256 10^3/uL (130-400); RBC 3.92 10^6/uL (3.93-5.22); RDW 13.3 % (11.7-14.6); RDW-SD 43.8 fL
[2025-10-11 07:42] LABS: WBC 6.02 10^3/uL (4.4-10.8)
--- NOTE | 2025-10-11 08:00 | DI.MRI_ITS ---
Exam(s) MR BRAIN WO EXAM: MR BRAIN WO CLINICAL HISTORY: CVA TECHNIQUE: Multiplanar multisequence MRI of the brain was performed. COMPARISON: CT CT BRAIN NECK CTA from 10/09/2025 FINDINGS: VENTRICLES AND EXTRA AXIAL SPACES: Normal in size and morphology for the patient's age. MIDLINE SHIFT: None. CEREBRAL PARENCHYMA: Tiny area of restricted diffusion in the right thalamic region consistent with acute lacunar infarct. No space-occupying lesion identified. Mild scattered foci of high signal in the white matter consistent with sequela of chronic microvascular disease. BRAINSTEM/CEREBELLUM: Normal. VISUALIZED PARANASAL SINUSES: Clear. MASTOIDS:Clear. Vasculature: Normal flow void. PITUITARY GLAND: Unremarkable. ORBITS: Unremarkable. IMPRESSION: Acute lacunar infarct in the right thalamus. DATA REPOSITORY:
[2025-10-11] MEDS: Aspirin E.C. 81 MG TABEC PO (08:52)
[2025-10-11] MEDS: Cholecalciferol (Vitamin D3) 400 UNIT TAB PO (08:52)
[2025-10-11] MEDS: Clopidogrel 75 MG TAB PO (08:52)
[2025-10-11] MEDS: Losartan 50 MG TAB 100 MG PO (08:52)
[2025-10-11] MEDS: Escitalopram 10 MG TAB 5 MG PO (08:52)
[2025-10-11] MEDS: Enoxaparin 40 MG/0.4 ML SYR SC (08:53)
[2025-10-11] MEDS: Furosemide 20 MG TAB PO (08:53)
[2025-10-11] MEDS: COENZYME Q10 10 MG 1 EACH PO (08:56)
[2025-10-11] MEDS: Normal Saline Flush 10 ML SYR IVP (08:58)
--- NOTE | 2025-10-11 11:46 | DSE_ITS ---
Date of service: 10/11/25 Time of Service: 11:46 DS: Diagnosis Discharge Diagnosis (1) Left arm numbness: Status: Acute (2) Carotid artery stenosis: Status: Chronic (3) Essential hypertension: Status: Acute (4) Pure hypercholesterolemia: Status: Acute (5) Depression: Status: Chronic (6) PVD (peripheral vascular disease): Status: Chronic (7) Hypothyroid: Status: Chronic (8) DVT prophylaxis: Status: Acute (9) Discharge planning issues: Status: Acute Discharge Plan Disposition Patient Disposition: Home Condition: Good Discharge Details Reason For Visit: CVA/TIA Admit Date/Time: 10/09/25 09:13 Admit Provider: Yahir Dunbar Attending Provider: Yahir Dunbar Primary Care Provider: Dayanna Michaels Hospital Course Hospital Course: 69-year-old female with history of hypertension and hyperlipidemia presents to ED 10/09/25 with acute onset left-sided facial and arm numbness beginning around 9:00 PM on 10/08/25. Symptoms are constant and moderate. Denies weakness, vision changes, speech difficulty, chest pain, shortness of breath, or falls. Patient ambulatory, alert, oriented ×4. No prior similar episodes. Home medications include aspirin, atorvastatin, losartan, levothyroxine, escitalopram, furosemide, omeprazole, coenzyme Q10, vitamin D, fluticasone, and fexofenadine. Allergic to penicillin V (severe, childhood). Past Medical History: * Hyperlipidemia * Hypertension * Raynaud’s phenomenon * Spinal stenosis, cervical region * Shingles Past Surgical History: * Colon resection * Colonoscopy * EGD with dilation * Incisional hernia repair * Shoulder surgery * Hysterectomy Social History: * Former smoker (quit 1999) * Alcohol 0–2 drinks/day * Lives at home, feels safe Hospital Course: * CTA/CT negative for acute infarct. * Teleneurology consult: likely small thalamic CVA. * Loaded with aspirin 243 mg (previously 81 mg) and Plavix 300 mg. * Telemetry monitoring initiated. * MRI brain and echocardiogram scheduled for 10/12/25. * BP elevated on arrival (229/94), improved to 160/70 on admission without intervention. * Labs notable for mild hyperglycemia (Glucose 119), LDL 84.3, TSH 3.38. Discharge Medications: * Aspirin 81 mg PO daily * Clopidogrel (Plavix) 75 mg PO daily * Atorvastatin 10 mg PO QHS * Losartan 100 mg PO daily * Levothyroxine 100 mcg PO daily * Escitalopram 5 mg PO daily * Furosemide 20 mg PO daily * Omeprazole 20 mg PO daily * Coenzyme Q10 10 mg PO daily * Vitamin D 400 units PO daily * Fluticasone nasal spray 1 spray daily PRN * Fexofenadine 180 mg PO daily PRN * Enoxaparin 40 mg SC daily (DVT prophylaxis) Allergies: * Penicillin V: severe reaction as a child Discharge Condition: * Ambulatory, alert ×3–4, stable vitals * Neurological deficits stable; numbness persists Assessment & Plan at Discharge: * Left arm/facial numbness – Acute CVA (small thalamic) * Continue aspirin and Plavix * PT consult for safety, mobility * Essential hypertension – Acute on chronic * Resume home antihypertensives, monitor BP * Hyperlipidemia * Continue atorvastatin * Depression * Continue escitalopram * Hypothyroidism * Continue levothyroxine * Peripheral vascular disease * Chronic, stable * DVT prophylaxis * Continue enoxaparin until fully ambulatory * Discharge planning * Anticipate home discharge post-MRI/echo Saturday * No additional home services anticipated Follow-Up: * MRI brain and echocardiogram: 10/11/25 - MRI: Acute lacunar infarct in the right thalamus. Echocardiogram - EF 60 % No regional WMA. No PFO. * Neurology follow-up as advised @ [facility] [place] - referral sent * Monitor for worsening neurological symptoms; seek immediate care if present * 30 day event monitor Patient Instructions: * Take medications as prescribed * Monitor BP at home * Report any new weakness, numbness, vision changes, or speech difficulty immediately * Maintain mobility, follow PT exercises * Maintain safe environment at home Code Status: Full code Home Meds and New Rx's Prescriptions: New clopidogrel 75 mg Tablet 75 mg PO DAILY Qty: 20 0RF Continued escitalopram oxalate 5 mg tablet 5 mg PO DAILY levothyroxine 100 mcg capsule 100 mcg PO DAILY atorvastatin 10 mg tablet 10 mg PO QHS losartan 100 mg tablet 100 mg PO DAILY fexofenadine [Brina Allergy] 180 mg tablet 180 mg PO DAILY PRN coenzyme Q10 [Co Q-10] 10 mg capsule 10 mg PO DAILY aspirin [Adult Aspirin Regimen] 81 mg tablet,delayed release (DR/EC) 81 mg PO DAILY fluticasone propionate [Allergy Relief (fluticasone)] 50 mcg/actuation spra y,suspension 1 spray intranasal DAILY PRN Rx Instructions: administer into each nostril furosemide 20 mg tablet 20 mg PO QAM omeprazole 20 mg capsule,delayed release(DR/EC) 20 mg PO DAILY cholecalciferol (vitamin D3) 10 mcg (400 unit) capsule 10 mcg PO DAILY Discharge Instructions Instructions: Aspirin, Clopidogrel Additional Instructions: A referral has been sent to [facility] [place] Neurology - they will call you. Follow up with PCP in 1 week. Start plavix 75 mg daily for 20 days and aspirin 81 mg daily until advised by PCP or neurology to stop. 30 days cardiac event monitor. A lacunar infarct refers to a small stroke that affects deep structures in the brain, such as the thalamus. In your case, the infarct is located in the right thalamus. Below are important instructions and recommendations to help manage your condition: 1. Understanding Your Condition: * What is a Lacunar Infarct? A lacunar infarct occurs when a small artery in the brain becomes blocked, causing damage to a small area of brain tissue. In your case, the infarct is in the thalamus, which is involved in sensory processing and relaying signals between different parts of the brain. * Right Thalamus Involvement: The thalamus plays an important role in sensations, movement coordination, and relaying signals from the body to the brain. Damage to the right thalamus can result in sensory changes (numbness, tingling) or movement problems on the left side of the body. 2. Symptoms to Monitor: * Sensory Changes: Numbness, tingling, or a sensation of pins and needles on the left side of the body (contralateral side). * Motor Impairment: Weakness or difficulty moving the left side of your body. * Pain or Discomfort: Some patients experience a condition called thalamic pain syndrome (Dejerine-Roussy syndrome), which is characterized by burning, aching pain. * Balance or Coordination Problems: Difficulty with walking or coordination, especially on the left side. 3. Medication and Treatment: * Blood Thinners (Antiplatelet or Anticoagulants): If prescribed, these medications help prevent further blood clots and reduce the risk of additional strokes. * Antihypertensive Medications: If you have high blood pressure, it is essential to control it to reduce the risk of further strokes. * Pain Management: If you experience pain, your doctor may prescribe medications to help control thalamic pain. 4. Lifestyle Changes & Recommendations: * Follow-Up Appointments: Regular follow-up visits with your healthcare provider are important to monitor your recovery, manage risk factors (e.g., hypertension, diabetes), and adjust treatment as needed. * Physical and Occupational Therapy: You may need rehabilitation therapy to address any movement difficulties or sensory impairments resulting from the stroke. This therapy can help you regain function and improve your quality of life. * Healthy Diet and Exercise: A heart-healthy diet, regular physical activity, and weight management are critical to reduce the risk of another stroke. * Aim for a low-salt, low-fat diet that includes plenty of fruits, vegetables, whole grains, and lean proteins. * Engage in at least 30 minutes of moderate exercise most days of the week, as approved by your doctor. 5. Managing Risk Factors: * Control Blood Pressure: High blood pressure is a major risk factor for strokes. Make sure you are taking any prescribed medications as directed, and monitor your blood pressure regularly. * Diabetes Management: If you have diabetes, maintaining normal blood sugar levels is essential to prevent further complications. * Cholesterol Control: Ensure that your cholesterol levels are within the recommended range to prevent further strokes. 6. Warning Signs of a Stroke or Complications: Seek immediate medical help if you experience any of the following: * Sudden weakness or numbness, especially on one side of the body (e.g., left side). * Difficulty speaking or understanding speech. * Sudden confusion, trouble seeing, or severe headache. * Sudden difficulty walking, dizziness, or loss of balance. 7. Emotional Support: * Mental Health: Recovering from a stroke can be emotionally challenging. It's normal to feel frustrated, anxious, or depressed during recovery. Consider joining a support group or speaking with a therapist to help cope with these emotions. 8. Emergency Contact Information: * Keep emergency contact numbers handy in case you experience any of the warning signs listed above. It’s important to act quickly in the event of a stroke or other complications. Stand Alone Forms: Portal Information Referrals: Dayanna Michaels [Primary Care Provider, Medicine] Referral Note: Your pcp will call to schedule your follow up, if you haven't heard from them please reach out. Activity:: Activity as Tolerated Equipment/Supplies:: No Equipment Needed Diet:: As Tolerated Discharge Orders Discharge Orders: Discharge Order (Routine); Ordered 10/11/25 Ordered By: Chelsea Vallejo Other Ambulatory Orders: Cardiac Event Recorder (Routine) Timeframe: 20251011 Facility: [facility] - Location: Respiratory Therapy Ordered By: Chelsea Vallejo Discharge Data Discharge Date/Time-TO BE ENTERED AT DEPARTURE: 10/11/25 13:30 DS: Summary Time Spent with Patient providing and/or coordinating discharge services: Greater than 30 minutes Status at Discharge Functional status at discharge: independent ambulation Overall status at discharge: patient is progressing back to baseline Mental Status: mental status grossly normal Speech and Movement: speech and movement normal Mood: congruent mood Affect: normal affect Exam Narrative Exam Narrative: General: no acute distress, alert ×3 HENT: head normal, ears and nose normal, oral mucosa moist; left face numb, slight drooping of left eye lid noted, unchanged from yesterday Eyes: normal Neck: normal Resp: normal effort, speaking in full sentences Cardio: regular rate, no murmurs, no JVD Skin: no rashes or lesions Neuro: cranial nerves II–XII intact, motor 5/5, no pronator drift, normal speech and cognition; left lower arm is numb Extremities: normal Psych: grossly normal mental status Psych Mental Status: mental status grossly normal Speech and Movement: speech and movement normal Mood: congruent mood Affect: normal affect DS: Data Vitals/I&O Vitals and I&O: Vital Signs Temperature 36.7 C 10/11/25 07:30 Temperature Source Temporal Artery Scan 10/11/25 07:30 Pulse 62 10/11/25 07:30 Pulse Rhythm Regular 10/09/25 15:41 Pulse 72 10/09/25 12:20 Respiratory Rate 17 10/11/25 07:30 Respiratory Effort Normal 10/09/25 15:41 Respiratory Depth Normal 10/09/25 15:41 Respiratory Pattern Normal 10/09/25 15:41 Blood Pressure 144/59 H 10/11/25 07:30 Blood Pressure Mean 87 10/11/25 07:30 Blood Pressure Position Sitting 10/09/25 06:53 Pulse Oximetry 97 10/11/25 07:30 Oxygen Delivery Method Room Air 10/11/25 07:30 Oxygen Flow Rate 0 10/11/25 07:30 Pain Level 0 10/11/25 07:30 Comment Pt is sleeping, pt refused vitals. Pt's vitals are Q4 while awake, LEASING MACHINE TENDER will get vitals next time pt is awake. 10/09/25 23:22 Intake & Output 10/10/25 10/10/25 10/11/25 11:59 23:59 11:59 Intake Total 300 / 480 180 / 480 420 / 420 Output Total 1300 / 1700 400 / 1700 1300 / 1300 Balance -1000 / -1220 -220 / -1220 -880 / -880 Weight 64.637 kg Intake: Oral 300 / 480 180 / 480 420 / 420 Output: Urine 1300 / 1700 400 / 1700 1300 / 1300 Other: Urine Color Yellow Yellow Yellow Urine Appearance Clear Clear Clear Urine Odor Normal None Comment Pt voids ind. into toilet. Data Completed and Pending Pending Labs at Discharge: 10/09/25 10/09/25 10/09/25 07:23 07:48 08:27 WBC 7.04 RBC 4.05 Hgb 12.3 Hct 36.6 MCV 90 MCH 30.4 MCHC 33.6 RDW 13.2 Plt Count 282 MPV 10.2 Immature Gran % 0.3 Neutrophils % 69.5 Lymphocytes % 18.8 Monocytes % 8.5 Eosinophils % 2.0 Basophils % 0.9 Nucleated RBC % 0.0 Absolute Neutrophils 4.90 Absolute Lymphocytes 1.32 Absolute Monocytes 0.60 Absolute Eosinophils 0.14 Absolute Basophils 0.06 PT 10.4 INR 1.0 APTT 26.0 Sodium 135 L Potassium 3.9 Chloride 100 Carbon Dioxide 27.9 Anion Gap 7.3 BUN 10 Creatinine 0.6 Est GFR (CKD-EPI 2020) 94.63 Glucose 119 H Hemoglobin A1c 5.9 H Calcium 9.4 Magnesium 2.1 Total Bilirubin 0.80 AST 26 ALT 21 Alkaline Phosphatase 95 Troponin I 6 7 Total Protein 7.7 Albumin 4.7 Triglycerides 38 Total Cholesterol 153 LDL Cholesterol, Calc 84.3 HDL Cholesterol 61 TSH 3.38 Urine Color Yellow Urine Clarity Sl Cloudy Urine pH 7.0 Ur Specific [place] 1.015 Urine Protein Negative Urine Ketones Negative Urine Blood Trace-intact H Urine Nitrite Negative Urine Bilirubin Negative Urine Urobilinogen 0.2 Ur Leukocyte Esterase Negative Urine RBC 3-5 H Urine WBC 0-2 Ur Epithelial Cells Rare Urine Crystals Negative Urine Bacteria Few Urine Casts Negative Urine Mucus Trace Ur Culture Indicated? No Urine Glucose Negative 10/09/25 10/10/25 10/11/25 10:23 05:25 06:13 WBC 6.69 6.02 RBC 3.89 L 3.92 L Hgb 11.7 12.0 Hct 34.7 L 35.4 L MCV 89 90 MCH 30.1 30.6 MCHC 33.7 33.9 RDW 13.3 13.3 Plt Count 285 256 MPV 10.4 10.2 Immature Gran % 0.3 0.5 Neutrophils % 48.5 45.7 Lymphocytes % 32.3 33.4 Monocytes % 12.3 13.1 Eosinophils % 6.0 6.3 Basophils % 0.6 1.0 Nucleated RBC % 0.0 0.0 Absolute Neutrophils 3.25 2.75 Absolute Lymphocytes 2.16 2.01 Absolute Monocytes 0.82 H 0.79 Absolute Eosinophils 0.40 0.38 Absolute Basophils 0.04 0.06 PT INR APTT Sodium 133 L 135 L Potassium 3.5 3.8 Chloride 97 L 99 Carbon Dioxide 27.6 28.1 Anion Gap 8.5 8.3 BUN 11 11 Creatinine 0.6 0.6 Est GFR (CKD-EPI 2020) 92.90 91.22 Glucose 104 105 Hemoglobin A1c Calcium 9.2 9.0 Magnesium 2.0 2.0 Total Bilirubin AST ALT Alkaline Phosphatase Troponin I 6 Total Protein Albumin Triglycerides Total Cholesterol LDL Cholesterol, Calc HDL Cholesterol TSH Urine Color Urine Clarity Urine pH Ur Specific [place] Urine Protein Urine Ketones Urine Blood Urine Nitrite Urine Bilirubin Urine Urobilinogen Ur Leukocyte Esterase Urine RBC Urine WBC Ur Epithelial Cells Urine Crystals Urine Bacteria Urine Casts Urine Mucus Ur Culture Indicated? Urine Glucose PFSH All Active Problems (Updated 10/11/25 @ 14:32 by Chelsea Vallejo NP) Lacunar stroke (Acute) Discharge planning issues (Acute) DVT prophylaxis (Acute) Left arm numbness (Acute) Schatzki ring of distal esophagus (Acute) Dysphagia (Acute) Systolic murmur (Acute ~10/2023) Disorder of left atrium (Acute ~11/2023) Right lower quadrant pain (Acute) Tubulovillous adenoma of colon (Acute) GERD (gastroesophageal reflux disease) (Chronic) Pure hypercholesterolemia (Acute) Essential hypertension (Acute) Abnormal glucose (Acute) Diverticulosis of both small and large intestine without perforation or abscess without bleeding (Acute) Depression (Chronic) PVD (peripheral vascular disease) (Chronic) Carotid artery stenosis (Chronic) Cardiomegaly (Acute) Rosacea (Acute) Hypothyroid (Chronic) Medical History (Updated 10/11/25 @ 14:32 by Chelsea Vallejo NP) Hyperlipidemia Metatarsalgia Raynaud's phenomenon Shingles 2020 Family history of alcoholism Spinal stenosis in cervical region Cervical disc displacement Surgical History (Updated 05/18/25 @ 13:08 by Whit Guillaume) History of esophagogastroduodenoscopy (~04/2025) with dilation History of colonoscopy (~07/2023) History of incisional hernia repair History of colon resection 2011 H/O shoulder surgery H/O: hysterectomy Social History Smoking/Tobacco Use Status: Former Tobacco Use Quit Date: 11/25/99 Smoking risk assessment performed?: Yes Alcohol Intake: current Alcohol Intake frequency: 0-2 drinks per day Alcohol type: beer Drug use: Never Substance use type: does not use Housing: house Do you feel safe at home: Yes Do you feel safe in your relationship?: Yes Time Spent with Patient Time Spent with Patient: 45-69 minutes Time was spent: preparing to see the patient(eg.review tests), ordering medications,tests, procedures, referring, communicating with other health vocational childcare teacher, indepentently interpreting results, counseling the patient and care coordination
--- NOTE | 2025-10-11 16:41 | CMDISCH_ITS ---
Date of service: 10/11/25 Time of Service: 16:41 LACE Index Scoring Tool Questions: Length of Stay (in days): 2 Was the patient admitted via the E.D.?: Yes E.D. Visits: 0 Answers: Total Score: 5 Risk of Readmission: Low Risk Care Management Discharge Plan Reason for Hospitalization: CVA/TIA Discharge Plan: Xochitl returned home today with no new services. She transported home via private vehicle by family. She will follow up with her PCP and discharg e plan. She was happy to be going home. Patient/Family Education Needs: Review discharge instructions and limitations, discussion of self care needs including ask me three.
== END 2025-10-11 13:30 | disposition home or self-care (01) ==
LOC: ER 08:49 → EDHOLD 09:33 → MS 10-10 07:04
PROVIDERS: Admitting Provider Family Medicine; Emergency Provider Emergency Medicine; PCP Nurse Practitioner Family; Responsible Provider Nurse Practitioner Family; Visit Provider Family Medicine
DX: I63.81 Other cerebral infarction due to occlusion or stenosis of small artery (principal); R20.0 Anesthesia of skin; I10 Essential (primary) hypertension; I65.23 Occlusion and stenosis of bilateral carotid arteries; I08.3 Combined rheumatic disorders of mitral, aortic and tricuspid valves; F32.A Depression, unspecified; E78.00 Pure hypercholesterolemia, unspecified; R29.701 NIHSS score 1; Z87.891 Personal history of nicotine dependence; I73.00 Raynaud's syndrome without gangrene; M48.00 Spinal stenosis, site unspecified; K22.2 Esophageal obstruction; K21.9 Gastro-esophageal reflux disease without esophagitis; K57.50 Diverticulosis of both small and large intestine without perforation or abscess without bleeding; Z90.49 Acquired absence of other specified parts of digestive tract
CPT/HCPCS: 00123; 36415; 70496; 70498; 80048; 80053; 80061; 93005; 97161; 99285; J1650; 70551; 81003; 81015; 83036; 83735; 84443; 84484; 85025; 85610; 85730; 93010; 93306; 99222; 99233; 99239; G0378; J3490

== ENCOUNTER 2025-10-11 15:11 | Outpatient (CLI) | payer MEDICARE, SELFPAY | END 2025-10-11 15:12 | disposition home or self-care (01) | LOC: RT 15:12 | PROVIDERS: PCP Nurse Practitioner Family; Visit Provider Nurse Practitioner Family | DX: I63.81 Other cerebral infarction due to occlusion or stenosis of small artery (principal) | CPT/HCPCS: 93270 ==

== ENCOUNTER 2025-11-11 08:13 | Outpatient (CLI) | payer MEDICARE, SELFPAY ==
--- NOTE | 2025-11-11 09:16 | W.CARDEVENT ---
Date of service: 11/11/25 Time of Service: 09:16 Cardiac Event Recorder Referring Provider:: Dayanna Michaels Indications:: Stroke Cardiac Event Note: This is a cardiac event monitor. Patient was monitored for 25 days and 10 hours Rhythm throughout sinus. Average heart rate overall was 68. There was no bradycardia. Maximum heart rate was 107 There was no atrial fibrillation, no high-grade AV block, no pauses greater than 3 seconds. No symptoms were reported
== END 2025-11-11 08:14 | disposition home or self-care (01) ==
LOC: CARDOPNVT 08:13
PROVIDERS: PCP Nurse Practitioner Family; Visit Provider Internal Medicine Cardiovascular Disease
DX: I63.81 Other cerebral infarction due to occlusion or stenosis of small artery (principal)
CPT/HCPCS: 93272